=== PATIENT | female | born 1955 | race Caucasian/White ===

== ENCOUNTER 2021-11-03 00:32 | Day surgery (SDC) | payer MEDICARE, SELFPAY ==
[2021-10-19 14:04] VITALS: BMI 30.2
[2021-11-03 08:11] VITALS: BP 125/52; PULSE 76; RESP 16; TEMP 36.2; O2SAT 100
[2021-11-03 08:11] LABS: Glucose Point of Care 296 mg/dl (65-105)
[2021-11-03] MEDS: LACTATED RINGERS 1,000 ML 150 ML IV CONT (08:13)
--- NOTE | 2021-11-03 08:20 | P.PNAN_ITS ---
Anes - Initial Pre Proc Eval Procedure: Operation Date: 11/03/21 09:30 Proposed Procedures p Screening Colonoscopy - Stanley Marie MD Date/Time: 11/03/21 08:20 Surgeon: Stanley Marie MD Pre Op Diagnosis: neoplasm screening Patient Data Age: 65 Gender: F Height: 1.63 m Weight: 79.2 kg Last Vital Signs Temp 36.2 C L 11/03/21 08:11 Pulse 76 11/03/21 08:11 Resp 16 11/03/21 08:11 BP 125/52 L 11/03/21 08:11 Pulse Ox 100 11/03/21 08:11 Allergies Allergy/AdvReac Type Severity Reaction Status Date / Time No Known Allergies Allergy Verified 11/03/21 08:09 Home Medications Medication Instructions Recorded Confirmed Type atorvastatin 40 mg tablet 40 mg PO QHS #90 tablet 09/08/21 11/03/21 Rx glipizide 5 mg tablet, extended 5 mg PO DAILY #90 tablet 10/27/21 11/03/21 Rx release 24 hr levothyroxine 75 mcg tablet 75 mcg PO DAILY #90 tablet 10/27/21 11/03/21 Rx metformin 1,000 mg tablet 1,000 mg PO BID #180 tablet 10/27/21 11/03/21 Rx Laboratory Tests 11/03/21 08:06 POC Capillary Glucose 296 mg/dl H mg/dl (65-105) Patient hx anesthesia problems: none Family hx anesthesia problems: none Results Review: All pre-operative results and documents have been reviewed as part of the pre-operative evaluation. [facility] Past Medical History Medical History Hypothyroid Type 2 diabetes mellitus without complications Surgical History Surgical History History of ankle surgery History of tonsillectomy and adenoidectomy Family History Family History Other Diabetes mellitus Heart disease Social History Social History Smoking status: Never smoker Alcohol intake: current Substance use: never Substance use type: does not use Living arrangements: with family Spiritual care concerns: No Anes - Eval Final PreProcedure Day of Procedure 11/03/21 08:20 Patient weight: obese Heart: regular rate and rhythm Lungs: clear to auscultation Airway: Mallampati scale class II Neurological: alert and oriented Last oral intake: >/= 8 hours ASA classification: III Emergent: no Anesthetic plan: proceed Anesthesia type and monitoring: general GIVS and standard monitoring Results Review: All pre-operative results and documents have been reviewed as part of the pre-operative evaluation. Informed Consent: The patient's anesthetic plan and its attendant risks and benefits were discussed with the patient/family/POA. Questions were solicited and answers provided to the satisfaction of the patient/family/POA.
--- NOTE | 2021-11-03 08:41 | PM.HPGS ---
History of Present Illness History of Present Illness Consent: Risks, benefits, and alternatives have been discussed and questions answered. Patient agrees to proceed with procedure. Chief complaint: neoplasm screening Narrative: Geetha Hernandez is a 65 year old female here for screening colonoscopy, last one over 10 years ago. Review of Systems Constitutional: Constitutional: Denies headache(s) and Denies weakness Eyes: Eyes: Denies blurry vision ENT: Reports Normal hearing present, Denies headache(s) and Denies neck pain Cardiovascular: Cardiovascular: Denies chest pain and Denies dyspnea Respiratory: Respiratory: Denies dyspnea Gastrointestinal: Gastrointestinal: Reports no additional gastrointestinal complaints Genitourinary: Genitourinary: Denies dysuria Musculoskeletal: Musculoskeletal: Denies neck pain Integumentary/Breasts: Skin/Breast: Denies dry skin Neurologic: Reports Normal hearing present, Denies headache(s) and Denies weakness Psychiatric: Psychiatric: Denies anxiety Endocrine: Endocrine: Denies change in body appearance Hematologic/Lymphatic: Hematologic/Lymphatic: Denies easy bleeding Allergic/Immunologic: Allergic/Immunologic: Denies urticaria PMFSH Past Medical History Medical History Hypothyroid Type 2 diabetes mellitus without complications Surgical History Surgical History History of ankle surgery History of tonsillectomy and adenoidectomy Family History Family History Other Diabetes mellitus Heart disease Social History Social History Smoking status: Never smoker Alcohol intake: current Substance use: never Substance use type: does not use Living arrangements: with family Spiritual care concerns: No Meds Home Medications and Allergies Home Medications Medication Instructions Recorded Confirmed Type atorvastatin 40 mg tablet 40 mg PO QHS #90 tablet 09/08/21 11/03/21 Rx glipizide 5 mg tablet, extended 5 mg PO DAILY #90 tablet 10/27/21 11/03/21 Rx release 24 hr levothyroxine 75 mcg tablet 75 mcg PO DAILY #90 tablet 10/27/21 11/03/21 Rx metformin 1,000 mg tablet 1,000 mg PO BID #180 tablet 10/27/21 11/03/21 Rx Allergies Allergy/AdvReac Type Severity Reaction Status Date / Time No Known Allergies Allergy Verified 11/03/21 08:09 Vital Signs Vital Signs - 24 hr 11/03/21 08:11 Temperature 97.1 F L Pulse Rate 76 Respiratory Rate 16 Blood Pressure 125/52 L Pulse Oximetry 100 Exam Const: General: comfortable and no acute distress HENMT: General nose exam: Normal nares present Eyes: General: appearance normal, both eyes and all related structures Neck: Neck: no JVD Resp: Auscultation: clear to auscultation bilaterally Cardio: Rate: regular rate Rhythm: regular rhythm GI: Inspection: non-distended GI Palp: Yes Soft to palpation Skin: General skin exam: normal color Neuro: General: gait normal Speech: normal speech Extrem: General: normal to inspection Psych: Mental Status: mental status grossly normal Assessment and Plan Assessment and plan (1) Screening for malignant neoplasm of colon: Code(s): Z12.11 - Encounter for screening for malignant neoplasm of colon Status: Acute Assessment and Plan: colonoscopy
[2021-11-03 09:00] VITALS: BP 84/47; PULSE 67; RESP 19; O2SAT 93
[2021-11-03 09:10] VITALS: BP 97/48; PULSE 72; RESP 25; O2SAT 100
[2021-11-03 09:20] VITALS: BP 107/50; PULSE 52; RESP 15; O2SAT 100
== END 2021-11-03 09:40 | disposition home or self-care (01) ==
PROVIDERS: PCP Family Medicine; Visit Provider Internal Medicine Gastroenterology
PROC: 0DJD8ZZ Inspection of Lower Intestinal Tract, Via Natural or Artificial Opening Endoscopic (ICD-10-PCS; CPT 45378; principal; 2021-11-03 09:30)
DX: Z12.11 Encounter for screening for malignant neoplasm of colon (principal); K64.8 Other hemorrhoids; E11.9 Type 2 diabetes mellitus without complications; E03.9 Hypothyroidism, unspecified; Z79.84 Long term (current) use of oral hypoglycemic drugs; E66.9 Obesity, unspecified; Z68.30 Body mass index [BMI] 30.0-30.9, adult
CPT/HCPCS: G0121; 82948; J2704; J7120

== ENCOUNTER 2022-05-06 13:24 | Outpatient (CLI) | payer MEDICARE, SELFPAY | END 2022-05-06 13:25 | disposition home or self-care (01) | LOC: ANHAUDIO 13:27 | PROVIDERS: PCP Family Medicine; Visit Provider Otolaryngology | DX: H93.8X2 Other specified disorders of left ear (principal) | CPT/HCPCS: 92557; 92567 ==

== ENCOUNTER 2022-06-22 09:46 | Emergency (ER) | payer MEDICARE, SELFPAY ==
--- NOTE | ~2022-06-22 | XR_ITS ---
XR knee RT 3V DATE: 06/22/2022 11:25 INDICATION: Anterior medial knee pain after being struck by large dog TECHNIQUE: [place], AP and lateral views COMPARISON: None FINDINGS: There is a prominent inferiorly directed beak-like deformity of the medial metaphyseal area of the distal femur, chronic. Moderate narrowing of the medial compartment joint space with mild periarticular spurring at the medi al and patellofemoral compartments and to a slight extent the lateral compartment. Mild suprapatellar knee joint effusion. No fracture or dislocation, periosteal reaction or bone destruction is detected. No radiopaque intra- articular loose body or chondrocalcinosis. IMPRESSION: Tricompartment osteoarthritis Small knee joint effusion is suspected Chronic beak-like deformity at medial metaphyseal area of distal femur Reviewed, dictated and finalized at location B.
[2022-06-22 10:39] VITALS: BP 131/71; PULSE 76; RESP 18; TEMP 37.4; O2SAT 97
--- NOTE | 2022-06-22 11:21 | ED.FALL ---
HPI - Fall General Chief Complaint: Fall Stated Complaint: Fall- RT knee, HI Time Seen by Provider: 06/22/22 10:58 History of Present Illness HPI Narrative: 66-year-old female presents the emergency room complaints of right knee pain. Patient states yesterday dog was running around the neighborhood and ran into her from the backside. This caused patient to fall forward twisting her knee and landing on her backside. Patient is complaining of right knee pain that is worse with ambulation. States that she is experiencing some swelling to the inside of her knee. Denies any clicking or locking up. States she feels that occasionally her knee is unstable when she is walking Related Data Allergies Allergy/AdvReac Type Severity Reaction Status Date / Time No Known Allergies Allergy Verified 06/22/22 11:17 Review of Systems Review of Systems: CONSTITUTIONAL: Denies fever, chills, or sweats. EYES: Denies visual changes, redness, or discharge. ENT: Denies rhinorrhea, congestion, sore throat, or otalgia. CARDIOVASCULAR: Denies chest pain, palpitations, or edema. RESPIRATORY: Denies cough or dyspnea. GASTROINTESTINAL: Denies abdominal pain, nausea, vomiting, or diarrhea. GENITOURINARY: Denies dysuria or hematuria. SKIN: Denies rash or itching. MUSCULOSKELETAL: Reports right knee pain NEUROLOGIC: Denies headache, numbness, dizziness, or weakness. PSYCHIATRIC: Denies anxiety or depression. [facility] Past Medical History Medical History Hypothyroid Type 2 diabetes mellitus without complications Surgical History Surgical History History of ankle surgery History of tonsillectomy and adenoidectomy Family History Family History Father Acute myocardial infarction Mother Sibling Acute myocardial infarction Other Diabetes mellitus Heart disease Social History Social History Smoking status: Never smoker Tobacco type: cigarettes Second hand tobacco smoke exposure: Yes Alcohol intake: current Drinks per week: 0 Alcohol use details: rare Substance use: never Substance use type: does not use Additional occupation/education comments: teacher Spiritual care concerns: No Exam Narrative: GENERAL: Well-appearing, well-nourished, no physical limitations, and in no acute distress. HEAD: Normocephalic, atraumatic. EYES: Conjunctivae normal, PERRLA and EOMI. CHEST: Clear to auscultation. No respiratory distress. No wheezes rales or rhonchi. No tenderness. HEART: Regular rate and rhythm. No murmur heard. Normal peripheral pulses. BACK: No cervical/thoracic/lumbar tenderness, step-offs, bony abnormality; FROM EXTREMITIES: Right knee: No patellar tracking. Tenderness to the medial side of the patella. Negative anterior posterior drawer signs. Discomfort with valgus pressure. No joint laxity otherwise noted. Negative Jomar's test. Neurovascular is distally intact. No obvious bony abnormalities. SKIN: Warm, dry, no rash. No noted wounds NEURO: No focal deficits. Alert and oriented x3. MAEW. CN's II-XI intact bilaterally, antalgic gait PSYCH: Cooperative. Normal mood and affect. Course Vital Signs Vital signs: Vital Signs Temperature 37.4 C 06/22/22 10:39 Pulse Rate 76 06/22/22 10:39 Respiratory Rate 18 06/22/22 10:39 Blood Pressure 131/71 06/22/22 10:39 Pulse Oximetry 97 06/22/22 10:39 Oxygen Delivery Room Air 06/22/22 10:39 Temperature 37.4 C 06/22/22 10:39 Pulse Rate 76 06/22/22 10:39 Respiratory Rate 18 06/22/22 10:39 Blood Pressure 131/71 06/22/22 10:39 Pulse Oximetry 97 06/22/22 10:39 Oxygen Delivery Room Air 06/22/22 10:39 MDM - Fall Imaging Data Radiologist's impression: Impressions Knee X-Ray 05/26
[2022-06-22 12:25] VITALS: BP 124/58; PULSE 64; RESP 18; O2SAT 96
== END 2022-06-22 12:25 | disposition home or self-care (01) ==
PROVIDERS: Emergency Provider Nurse Practitioner Family; PCP Family Medicine
DX: M23.91 Unspecified internal derangement of right knee (principal); E03.9 Hypothyroidism, unspecified; E11.9 Type 2 diabetes mellitus without complications
CPT/HCPCS: 73562; 99283

== ENCOUNTER → 2023-01-27 12:59 | Outpatient (CLI) | payer MEDICARE, SELFPAY ==
--- NOTE | ~2023-01-27 | XR_ITS ---
XR ankle RT min 3V DATE: 01/27/2023 13:20 INDICATION: Right ankle and foot pain TECHNIQUE: 4 views COMPARISON: None FINDINGS: Mild plantar calcaneal enthesopathy. There is a lag screw through the medial malleolus. There is cerclage wire of the lateral malleolus. N o recent fracture or dislocation. Ankle mortise appears intact. No periosteal reaction or bone destruction. IMPRESSION: Postoperative change of the medial and lateral malleoli No recent fracture or dislocation Plantar calcaneal enthesopathy Reviewed, dictated and finalized at location A.
== END ==
PROVIDERS: PCP Family Medicine; Visit Provider Physician Assistant Medical
DX: M25.571 Pain in right ankle and joints of right foot (principal); M77.31 Calcaneal spur, right foot
CPT/HCPCS: 73610

== ENCOUNTER 2023-08-23 14:10 | Outpatient (CLI) | payer MEDICARE, SELFPAY ==
[2023-08-23 14:25] LABS: Basophils Absolute Auto 0.1 K/mm3 (0.0-0.1); Basophils Percent Auto 0.9 % (0.2-1.2); Eosinophils Absolute Auto 0.1 K/mm3 (0-0.3); Eosinophils Percent Auto 1.9 % (0-4.4); Hematocrit 50.7 % (37.0-47.0); Hemoglobin 16.6 g/dL (12.0-15.0); Immature Granulocyte Absolute 0.01 K/mm3 (0.00-0.031); Immature Granulocyte Percent A 0.1 % (0-0.5); Lymphocytes Absolute Auto 3.28 K/mm3 (0.9-3.2); Lymphocytes Percent Auto 47.2 % (18.3-44.2); Mean Corpuscular HGB Conc 32.7 g/dl (32-36); Mean Corpuscular Hemoglobin 29.6 pg (26-34); Mean Corpuscular Volume 90.4 fl (80-100); Mean Platelet Volume 11.3 fl (7.4-10.4); Monocytes Absolute Auto 0.5 K/mm3 (0.1-0.6); Monocytes Percent Auto 7.6 % (2.6-8.5); Neutrophils Absolute Auto 2.9 K/mm3 (1.3-6.7); Neutrophils Percent Auto 42.3 % (45.5-73.1); Platelet Count Result 242 k/mm3 (150-375); Red Blood Count 5.61 M/mm3 (4.2-5.4); Red Cell Distribution Width 13.2 % (11.5-14.5)
[2023-08-23 16:38] LABS: Alanine Aminotransferase 26 U/L (6-35); Albumin Level 4.6 g/dL (3.5-5.1); Alkaline Phosphatase 69 U/L (38-126); Anion Gap 10 mmol/L (8-16); Aspartate Amino Transferase 25 U/L (14-36); Bilirubin,Total 0.5 mg/dL (0.2-1.3); Blood Urea Nitrogen 16 mg/dL (7-17); Calcium 10.3 mg/dL (8.4-10.2); Carbon Dioxide 28 mmol/L (22-30); Chloride 101 mmol/L (98-107); Estimated Glomerular Filt Rate > 60; Glucose 136 mg/dL (65-110); Potassium 4.2 mmol/L (3.4-5.0); Sodium 139 mmol/L (137-145)
[2023-08-26 12:39] LABS: Erythropoietin (EPO) 9.8 mIU/mL (2.6-18.5)
[2023-08-30 12:58] LABS: Block/Specimen ID Not Given; CALR Exon 9 Mutation Not Detected (Not Detected); CSF3R Exon 14/17 Mutation Not Detected (Not Detected); JAK2 Exon 12 Mutation Not Detected (Not Detected); JAK2 V617F Mutation Not Detected (Not Detected); MPL Exon 10 Mutation Not Detected (Not Detected); Specimen Source Blood
== END 2023-08-23 14:11 | disposition home or self-care (01) ==
LOC: ANHLAB 14:13
PROVIDERS: Nurse Practitioner Family; PCP Family Medicine; Visit Provider Internal Medicine Hematology & Oncology
DX: D75.1 Secondary polycythemia (principal)
CPT/HCPCS: 36415; 80053; 81219; 81270; 81279; 81339; 81479; 82668; 85025

== ENCOUNTER 2023-09-09 05:58 | Day surgery (SDC) | payer MEDICARE, SELFPAY ==
[2023-09-02 12:10] VITALS: BMI 27.2
--- NOTE | ~2023-09-09 | XR_ITS ---
EXAMINATION: XR surgery orthopedic DATE: 09/09/2023 11:00 INDICATION: Right ankle instrumentation removal TECHNIQUE: Single fluoroscopic image of the right ankle were obtained during procedure performed by Heydi Dumont. Radiologist was not present for the imaging or procedure. The amount of fluoroscopy time used during this procedure was 0.1 minutes. COMPARISON: 01/27/2023 FINDINGS: Interval removal of the medial malleolar lag screw. A portion of the cerclage wire at the lateral mal leolus has been removed with residual small retained wire fragment projecting across the bone. No fra ctures identified. IMPRESSION: 1. Removal of fixation screw and cerclage wire at the medial and lateral malleoli respectively with r esidual small retained fragment of the cerclage wire. Reviewed, dictated and finalized at location A. OR MICROSOFT CONSULTANT IMPRESSION: 1. Removal of fixation screw and cerclage wire at the medial and lateral malleo li respectively with residual small retained fragment of the cerclage wire.
--- NOTE | 2023-09-09 07:06 | WPDHPUPDATE1 ---
History and Physical Update Update Date/Time: 09/09/23 07:06 History and Physical has been reviewed, including an updated exam of the patient. There are NO changes in the patient's condition. Risks, benefits, and alternatives have been discussed and questions answered. Patient agrees to proceed with procedure.
[2023-09-09 08:16] VITALS: BP 120/63; PULSE 52; RESP 16; TEMP 36.9; O2SAT 100
[2023-09-09 08:30] LABS: Glucose Point of Care 161 mg/dl (65-105)
[2023-09-09] MEDS: LACTATED RINGERS 1,000 ML 30 ML IV CONT (08:35)
--- NOTE | 2023-09-09 09:38 | WPDANESEPPF ---
Anes - Initial Pre Proc Eval Procedure: Operation Date: 09/09/23 09:30 Proposed Procedures p Removal Deep Orthopedic Hardware Right Ankle - Roly Dumont JR, MD Date/Time: 09/09/23 09:38 Surgeon: Roly Dumont JR, MD Pre Op Diagnosis: Painful Hardware Right Ankle Patient Data Age: 67 Gender: F Height: 1.57 m Weight: 69.2 kg Last Vital Signs Temp 36.9 C 09/09/23 08:16 Pulse 52 L 09/09/23 08:16 Resp 16 09/09/23 08:16 BP 120/63 09/09/23 08:16 Pulse Ox 100 09/09/23 08:16 O2 Del Method Room Air 09/09/23 08:16 Allergies Allergy/AdvReac Type Severity Reaction Status Date / Time morphine AdvReac Nausea and Verified 09/09/23 08:52 Vomiting Home Medications Medication Instructions Recorded Confirmed Type dapagliflozin propanediol 5 mg 5 mg PO DAILY #90 tabs 05/18/23 09/02/23 Rx tablet (Farxiga) levothyroxine 75 mcg tablet 75 mcg PO DAILY #90 tabs 06/28/23 09/02/23 Rx glipizide 5 mg tablet, extended 5 mg PO DAILY #90 tabs 07/10/23 09/02/23 Rx release 24 hr cyanocobalamin (vitamin B-12) 1,000 mcg PO .every other day 07/11/23 09/02/23 History 1,000 mcg tablet atorvastatin 40 mg tablet 40 mg PO QHS #90 tabs 08/25/23 09/02/23 Rx metformin 1,000 mg tablet 1,000 mg PO BID #180 tabs 08/25/23 09/02/23 Rx blood sugar diagnostic (FreeStyle #100 ea 08/30/23 Rx Lite Strips) Laboratory Tests 09/09/23 08:22 POC Capillary Glucose 161 H mg/dl (65-105) Patient hx anesthesia problems: none Family hx anesthesia problems: none Results Review: All pre-operative results and documents have been reviewed as part of the pre-operative evaluation. [facility] Past Medical History Medical History BMI 27.0-27.9,adult Hypothyroid Type 2 diabetes mellitus without complications Surgical History Surgical History History of ankle surgery History of tonsillectomy and adenoidectomy Family History Family History Father Acute myocardial infarction Diabetes mellitus Mother Heart disease Sibling Acute myocardial infarction Social History Social History Smoking status: Never smoker Second hand tobacco smoke exposure: No Alcohol intake: current Drinks per week: 0 Alcohol use details: rare Substance use: never Substance use type: does not use Lack of Transportation: No Lack of Food: Never True Current Housing: I Have Housing Concerned About Future Housing: No Difficulty Paying Gas/Electric Bills: No Difficulty Paying for Meds: No Currently Unemployed: No Education: Bachelor's Degree Difficulty w/ Childcare or Family Care: No Living arrangements: with family Occupation/Education: retired Additional occupation/education comments: [employer] Gender identity (if verbalized by the patient): Female Spiritual care concerns: No Anes - Eval Final PreProcedure Day of Procedure 09/09/23 09:38 Patient weight: overweight Heart: regular rate and rhythm Lungs: clear to auscultation Airway: Mallampati scale class II Neurological: alert and oriented Last oral intake: >/= 8 hours ASA classification: III Emergent: no Anesthetic plan: proceed Anesthesia type and monitoring: general GIVS and standard monitoring Results Review: All pre-operative results and documents have been reviewed as part of the pre-operative evaluation. Informed Consent: The patient's anesthetic plan and its attendant risks and benefits were discussed with the patient/family/POA. Questions were solicited and answers provided to the satisfaction of the patient/family/POA.
[2023-09-09] MEDS: ceFAZolin SODIUM 2 GM/20 ML SW SYRINGE IV PUSH (09:47)
[2023-09-09] MEDS: BUPivacaine HCL 0.5% 10 ML AMP INFILTRATE (09:55)
[2023-09-09] MEDS: LIDOCAINE HCL 2% PF INJ 5 ML VIAL 10 ML INFILTRATE (09:55)
[2023-09-09 10:46] VITALS: BP 108/62; PULSE 48; RESP 18; O2SAT 100
[2023-09-09 10:56] VITALS: BP 118/58; PULSE 51; RESP 18; O2SAT 96
--- NOTE | 2023-09-09 10:57 | W.PM.PROC2 ---
Procedure Note - Detailed Date of Procedure 09/09/23 Pre-op Diagnosis Painful Hardware Right Ankle Post-op Diagnosis Same Procedure Performed Removal of deep orthopedic hardware right ankle Surgeon Roly Dumont JR, DPM Anesthesia MAC and Local Indications Prominent hardware right ankle Description of Procedure Under mild sedation, the patient was brought in to the operating room, placed on the operating table in the supine position. A pneumatic calf tourniquet was placed about the patient's leg. Following monitored anesthesia care, local anesthesia was obtained about the patients ankle utilizing 20 mL of a 1:1 mixture of 2% Lidocaine plain and 0.5% Marcaine plain. The foot was then scrubbed, prepped, and draped in the usual aseptic manner. An Esmarch bandage was then used to exsanguinate the patient's foot and the pneumatic calf tourniquet was then inflated. An incision was made along the medial aspect of the distal tibial just proximal to the tip of the medial malleolus. Fluoroscopy was used to identify the screw head. Dissection was continued to the subcutaneous tissues all bleeders were cauterized as necessary. A periosteal incision was made and the screw head was visualized. It was noted to be a hexagonal 3.5mm head screw, it was removed in toto and placed on the back table. Fluoroscopy was used to confirm complete screw removal. The wound site was flushed with sterile saline. Next, the skin was reapproximated and coapted utilizing 4-0 Prolene in a Horizontal mattress suture fashion technique. The same procedure was duplicated for the lateral malleoli where cerclage wire was prominent and cut flush with the bone. It was also removed from the operative site and discarded. Upon completion of the procedure, the incision was dressed with Adaptic, 4x4s, Kerlix, and Coban. The pneumatic calf tourniquet was then deflated and a prompt hyperemic response was noted to all digits of the foot. The CAM Walker boot was then applied. The patient did very well with the procedure and the anesthesia. The patient was transferred to the recovery room with vital signs stable and vascular status intact to all toes of the foot. Following a period of postoperative monitoring, the patient will be discharged home on the following written and oral postoperative instructions: 1. The patient should keep the dressing clean, dry, and intact. Use a cast protector bag with showers. 2. The patient will be protected weightbearing with CAM boot. 3. Patient should ice and elevate the affected lower extremity while at rest. 4. The patient is to contact Dr. Dumont for all postop care and if any problems arise. 5. Prescriptions were written for Percocet 5/325 dispensed 40 to be taken 1 p.o. q.4-6 hours as needed for severe pain. Estimated Blood Loss -2.0 Drains No Packing No Pathology None sent Complications No immediate complications Condition Stable Disposition Same day
[2023-09-09 11:06] VITALS: BP 118/58; PULSE 48; RESP 17; O2SAT 100
[2023-09-09 11:16] VITALS: BP 124/59; PULSE 47; RESP 16; O2SAT 100
[2023-09-09 11:26] VITALS: BP 124/61; PULSE 50; RESP 16; O2SAT 98
--- NOTE | 2023-09-09 11:40 | WPDANESPN ---
Anes - Prog Note Post-Op Date/Time: 09/09/23 11:40 Cardiovascular status: normal Respiratory status: normal Airway patency: baseline Mental status: baseline Post-Op hydration status: normal Vital Signs: Last Vital Signs Temp 36.9 C 09/09/23 08:16 Pulse 50 L 09/09/23 11:26 Resp 16 09/09/23 11:26 BP 124/61 09/09/23 11:26 Pulse Ox 98 09/09/23 11:26 O2 Del Method Room Air 09/09/23 11:26 Pain Score (VAS): 0 I/O: Intake & Output 09/08/23 09/09/23 09/09/23 23:59 07:59 15:59 Intake Total 500 Balance 500 09/09/23 08:22 POC Capillary Glucose 161 H Patient Feedback: Patient satisfied with anesthetic care.
== END 2023-09-09 11:50 | disposition home or self-care (01) ==
PROVIDERS: PCP Family Medicine; Visit Provider Podiatrist Foot & Ankle Surgery
PROC: (CPT 20680; principal; 2023-09-09 09:30)
DX: T84.418A Breakdown (mechanical) of other internal orthopedic devices, implants and grafts, initial encounter (principal)
CPT/HCPCS: 20680; 99199

== ENCOUNTER 2023-09-14 09:42 | Emergency (ER) | payer MEDICARE, SELFPAY ==
--- NOTE | ~2023-09-14 | CT_ITS ---
EXAMINATION: CT lumbar spine wo con DATE: 09/14/2023 10:58 INDICATION: Lower back pain TECHNIQUE: Computed tomography (CT) of the lumbar spine was performed without intravenous contrast. T he dose-length product was 591.01 mGy-cm. Automated exposure control and iterative reconstruction blas hnique were employed. COMPARISON: None FINDINGS: There is disc narrowing at L4-5 and L5-S1. There is grade 1 spondylolisthesis at L4-5 and L 5-S1 secondary to facet hypertrophy. There is mild annular disc bulging at L4-5 causing bilateral jesus ral foraminal and central canal stenosis. No acute fracture or traumatic malalignment. No significant paraspinal soft tissue abnormality. Mild levoscoliosis of the lumbar spine centered at L3. IMPRESSION: 1. Moderate-severe lumbar spondylosis with central canal and bilateral neural foraminal stenosis at L 4-5. Reviewed, dictated and finalized at location B. OR FIRE PROTECTION ENGINEER IMPRESSION: 1. Moderate-severe lumbar spondylosis with central canal and bilateral neural f oraminal stenosis at L4-5.
[2023-09-14 10:09] VITALS: BP 130/48; PULSE 73; RESP 16; TEMP 36.3; O2SAT 97
[2023-09-14] MEDS: ACETAMINOPHEN 500 MG TABLET 1000 MG PO (11:00)
[2023-09-14] MEDS: KETOROLAC (*BKC) 60 MG/2 ML VIAL IM (11:01)
[2023-09-14] MEDS: CYCLOBENZAPRINE HCL 5 MG TABLET PO (11:01)
--- NOTE | 2023-09-14 11:06 | ED.BACK ---
HPI - Back Pain/Injury General Chief Complaint: Back Pain/Injury Stated Complaint: lower back pain Time Seen by Provider: 09/14/23 10:11 Source: patient Mode of arrival: ambulatory Limitations: no limitations History of Present Illness HPI Narrative: patient is a 67-year-old female who presents to the ED with report of right lower back pain. Patient underwent right ankle surgery and hardware removal with Dr. Dumont last . She has been in a walking boot since then. She developed pain in her right lower back on Tuesday, which he feels is from walking differently in the walking boot. Pain does not significantly radiate down her leg. Denies radiation to abdomen. Pain worse with bending, twisting, sitting up or down. Denies saddle anesthesia, bowel or bladder incontinence, weakness, numbness. Patient has been taking Tylenol and oxycodone at home without significant improvement. Related Data Home Medications Medication Instructions Recorded Confirmed cyanocobalamin (vitamin B-12) 1,000 mcg PO .every other day 07/11/23 09/02/23 1,000 mcg tablet Allergies Allergy/AdvReac Type Severity Reaction Status Date / Time morphine AdvReac Nausea and Verified 09/09/23 08:52 Vomiting Review of Systems Review of Systems: CONSTITUTIONAL: Denies fever, chills, or sweats. GASTROINTESTINAL: Denies abdominal pain, nausea, vomiting, incontinence, or diarrhea. GENITOURINARY: Denies incontinence, dysuria or hematuria. MUSCULOSKELETAL: See HPI. NEUROLOGIC: Denies headache, numbness, or weakness. All systems reviewed & are unremarkable except as noted in HPI and below PMFSH Past Medical History Medical History BMI 27.0-27.9,adult Hypothyroid Type 2 diabetes mellitus without complications Surgical History Surgical History History of ankle surgery History of tonsillectomy and adenoidectomy Family History Family History Father Acute myocardial infarction Diabetes mellitus Mother Heart disease Sibling Acute myocardial infarction Social History Social History Smoking status: Never smoker Second hand tobacco smoke exposure: No Alcohol intake: current Drinks per week: 0 Alcohol use details: rare Substance use: never Substance use type: does not use Lack of Transportation: No Lack of Food: Never True Current Housing: I Have Housing Concerned About Future Housing: No Difficulty Paying Gas/Electric Bills: No Difficulty Paying for Meds: No Currently Unemployed: No Education: Bachelor's Degree Difficulty w/ Childcare or Family Care: No Living arrangements: with family Occupation/Education: 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 HEAD: Normocephalic, atraumatic. NECK: Supple. No adenopathy, no masses. RESPIRATORY: Airway patent, respirations nonlabored. CARDIOVASCULAR: Regular rate and rhythm without murmurs, rubs, or gallops. Radial pulses 2+ and equal bilaterally. ABDOMINAL: Soft, no pain throughout abdomen, nondistended, no hepatosplenomegaly. Normoactive BS. MUSCULOSKELETAL: Moves all extremities. Strength/ROM intact without gross deformities. TTP in R lumbosacral region. No midline spinal tenderness. R foot/ankle in walking boot. Betadine skin changes. Sensation intact. Distal capillary refill intact. Able to wiggle toes. SKIN: Warm, dry, normal color. No rashes. NEURO: A&O X3. Speech clear. Cranial nerves II-XII grossly intact. No ataxic movements. PSYCHIATRIC: Appropriate mood and affect. Normal
[2023-09-14 12:36] VITALS: BP 107/68; PULSE 68; RESP 16; O2SAT 98
== END 2023-09-14 12:38 | disposition home or self-care (01) ==
PROVIDERS: Emergency Provider Physician Assistant; PCP Family Medicine
DX: S39.012A Strain of muscle, fascia and tendon of lower back, initial encounter (principal); Z98.890 Other specified postprocedural states; E03.9 Hypothyroidism, unspecified; E11.9 Type 2 diabetes mellitus without complications; M47.816 Spondylosis without myelopathy or radiculopathy, lumbar region; Z79.84 Long term (current) use of oral hypoglycemic drugs; X58.XXXA Exposure to other specified factors, initial encounter
CPT/HCPCS: 72131; 96372; 99284; A9270; J1885

== ENCOUNTER 2023-12-15 12:44 | Outpatient (CLI) | payer MEDICARE, SELFPAY ==
[2023-12-15 13:39] LABS: Appearance Urine Clear (Clear); Bacteria Urine 4+ /hpf; Bilirubin Urine Negative (Negative); Blood Urine 2+ (Negative); Color Urine Yellow (Yellow); Glucose Urine UA 3+ mg/dL (Negative); Ketones Urine Negative (Negative); Leukocyte Esterase Ur 1+ LEU/UL (NEGATIVE); Nitrate Urine Positive (Negative); Non Pathogenic Casts 0-2; Protein Urine Negative (Negative); RBC Urine 21-50 /hpf (0-2); Specific Grav Ur 1.022 (1.001-1.035); Squamous Epithelial Cell Urine None seen /hpf (Few); Urobilinogen Urine 0.2 mg/dL (<2.0)
[2023-12-15 13:47] LABS: Add Urine Microscopic? YES
== END 2023-12-15 12:45 | disposition home or self-care (01) ==
PROVIDERS: PCP Family Medicine; Visit Provider Nurse Practitioner Adult Health
DX: R31.29 Other microscopic hematuria (principal)
CPT/HCPCS: 81001

== ENCOUNTER 2023-12-29 11:40 | Outpatient (CLI) | payer MEDICARE, SELFPAY ==
--- NOTE | ~2023-12-29 | XR_ITS ---
Supine and upright views of the abdomen Clinical history: Microscopic hematuria Findings: Bowel gas pattern is nonspecific. No evidence for obstruction or free air. No abnormal mass lesion or calcification is seen. Osseous structures are intact. Impression: No significant abnormality is seen. Reviewed, dictated and finalized at [facility]. TER SAXOPHONES Impression: No significant abnormality is seen.
== END 2023-12-29 11:41 | disposition home or self-care (01) ==
PROVIDERS: PCP Family Medicine; Visit Provider Nurse Practitioner Adult Health
DX: R31.29 Other microscopic hematuria (principal)
CPT/HCPCS: 74018

== ENCOUNTER 2024-01-02 07:30 | Outpatient (CLI) | payer MEDICARE, SELFPAY ==
--- NOTE | ~2024-01-02 | CT_ITS ---
EXAMINATION: CT abdomen pelvis wo/w con DATE: 01/02/2024 08:13 INDICATION: Microscopic hematuria. TECHNIQUE: Computed tomography (CT) of the abdomen and pelvis was performed without intravenous contr ast. CT of the abdomen and pelvis was then performed with a total of 130 mL Omnipaque-350 intravenous contrast using a double-bolus technique for simultaneous opacification of the renal parenchyma and r enal collecting system. The dose-length product was 1252.73 mGy-cm. COMPARISON: None FINDINGS: Lung bases are clear. Heart size is normal. No pericardial or pleural effusion. There are few gallsto jurgen in the dependent fundus of the normal gallbladder. Liver, spleen, pancreas, bilateral adrenal gla nds and kidneys are normal. No urolithiasis or hydronephrosis. No urothelial irregularities along the contrast opacified portions of the bilateral renal collecting systems and ureters. The bowels includ ing the appendix are normal. Bladder, uterus and bilateral adnexa are unremarkable. No free intraperi toneal gas or fluid. No pathologically enlarged abdominal or pelvic lymphadenopathy. For millimeter a nterolisthesis L4 on L5. Mild lumbar and mild to moderate lower thoracic spondylosis. IMPRESSION: 1. No urolithiasis or acute intra-abdominal/pelvic process. 2. Cholelithiasis. Reviewed, dictated and finalized at location B.
[2024-01-02 07:49] LABS: Estimated Glomerular Filt Rate > 60
== END 2024-01-02 07:31 | disposition home or self-care (01) ==
PROVIDERS: PCP Family Medicine; Visit Provider Nurse Practitioner Adult Health
DX: R31.29 Other microscopic hematuria (principal); K80.20 Calculus of gallbladder without cholecystitis without obstruction
CPT/HCPCS: 74178; Q9967

== ENCOUNTER 2024-10-05 14:37 | Outpatient (CLI) | payer MEDICARE, SELFPAY ==
--- NOTE | 2024-10-05 14:53 | ECHO_ITS ---
Patient Info Name: Geetha Hernandez Age: 68 years : 1955 Gender: Female Ht: 63 in Wt: 154 lbs BSA: 1.78 m2 HR: 79 bpm BP: 110 / 66 mmHg Technical Quality: Good Exam Date: 10/05/2024 3:07 PM Exam Location: Echo Lab Patient Status: Outpatient Admit Date: 10/05/2024 Staff Ordering Physician: Natasha Vega PAC Chief Deputy Court Clerk: Elizabeth Navarrete RDCS Attending Provider: Natasha Vega PAC Referring Physician: Gary EPPS; Exam Type: CA echo doppler color flow Study Info Complete two-dimensional, color flow and Doppler transthoracic echocardiogram is performed. Summary 1. Complete two-dimensional, color flow and Doppler transthoracic echocardiogram is performed. 2. Left ventricular chamber dimension is normal. 3. Left ventricular systolic function is normal, estimated at 55-60%. 4. The left ventricular diastolic function is grade I diastolic dysfunction. 5. E/e' 9 is minimally elevated. 6. Left atrial chamber dimension is mildly enlarged. 7. There is mild mitral valve regurgitation. 8. There is mild tricuspid valve regurgitation. 9. No pulmonary hypertension, estimated pulmonary arterial systolic pressure is 29 mmHg. Left Ventricle E/e' 9 is minimally elevated. Left ventricular chamber dimension is normal. Left ventricular systolic function is normal, estimated at 55-60%. The left ventricular diastolic function is grade I diastolic dysfunction. Right Ventricle Right ventricular systolic function is normal and with normal TAPSE 1.8 cm. Right ventricular chamber dimension is mildly enlarged. Left Atria Left atrial chamber dimension is mildly enlarged. Right Atria Right atrial chamber dimension is normal. Aortic Valve The aortic valve is trileaflet. There is no aortic valve stenosis. There is no aortic valve regurgitation. Pulmonic Valve There is no pulmonic regurgitation. Mitral Valve There is no mitral valve stenosis. There is mild mitral valve regurgitation. Tricuspid Valve There is mild tricuspid valve regurgitation. No pulmonary hypertension, estimated pulmonary arterial systolic pressure is 29 mmHg. Pericardium/Pleural There is no pericardial effusion. Inferior Vena Cava Normal inferior vena cava with >50% collapse upon inspiration consistent with normal right atrial pressure, 5 mmHg. Aorta The aortic root size at the sinus of Valsalva is normal. Left Ventricular Outflow Tract Name Value Normal LVOT 2D LVOT Diameter 2.1 cm LVOT Doppler LVOT Peak Gradient 4 mmHg LVOT Mean Gradient 2 mmHg LVOT VTI 23 cm LVOT VTI/AV VTI Ratio 0.9 LVOT Stroke Volume 78 ml LVOT CO 4.5 l/min LVOT CI 2.5 l/min/m2 Pulmonic Valve Name Value Normal PV Doppler PV Peak Gradient 2 mmHg Mitral Valve Name Value Normal MV Doppler MV Decel Wallace 242 cm/s2 MV PHT 72 ms MV Area (PHT) 3.1 cm2 4.0-5.0 MV Regurgitation Doppler MR Peak Gradient 48 mmHg MV Diastolic Function MV E Peak Velocity 60 cm/s MV A Peak Velocity 80 cm/s MV E/A 0.7 MV Decel Time 247 ms MV Annular TDI MV E/e' (Septal) 10.9 <=8.0 MV E/e' (Lateral) 7.8 <=8.0 MV E/e' (Average) 9.3 Tricuspid Valve Name Value Normal TV Regurgitation Doppler TR Peak Velocity 246 cm/s TR Peak Gradient 24 mmHg Estimated PAP/RSVP RA Pressure 5 mmHg <=5 PA Systolic Pressure 29 mmHg <36 RV Systolic Pressure 29 mmHg <36 Aorta Name Value Normal Ascending Aorta Ao Root Diameter (2D) 3.1 cm Ao Root Diam Index (2D) 1.8 cm/m2 Aortic Valve Name Value Normal AV Doppler AV Peak Velocity 124 cm/s AV Peak Gradient 6 mmHg AV Mean Gradient 3 mmHg AV VTI 25 cm AV Area (Cont Eq VTI) 3.1 cm2 >=3.0 AV Area (Cont Eq Antonio) 2.7 cm2 AV Regurgitation 2D LVOT Area 3.4 cm2 Ventricles Name Value Normal LV Dimensions 2D/MM LVOT Diameter 2.1 cm LV Fractional Shortening/Ejection Fraction 2D/MM LV Diastolic Volume (4C MOD) 86 ml LV EF (4C MOD) 57 % LV Diastolic Volume (2C MOD) 80 ml LV EF (2C MOD) 38 % LV Diastolic Volume (BP MOD) 84 ml 46-106 LV Diastolic Volume Index (BP MOD) 47 ml/m2 29-61 LV Systolic Volume (BP MOD) 47 ml 14-42 LV Systolic Volume Index (BP MOD) 26 ml/m2 8-24 LV EF (BP MOD) 44 % 54-74 LV Diastolic Length (4C) 7.4 cm LV Systolic Length (4C) 6.6 cm LV Stroke Volume (4C MOD) 49 ml LV CO (BP MOD) 2.1 l/min LV CI (BP MOD) 1.2 l/min/m2 Atria Name Value Normal LA Dimensions LA Dimension (2D) 5.2 cm 2.7-3.8 LA Dimen Index (2D) 2.9 cm/m2 LA Volume (4C A-L) 38 ml LA Volume (BP A-L) 42 ml RA Dimensions RA Area (4C) 12.7 cm2 <=18.0 Report Signatures
--- OUTSIDE RECORDS SUMMARY | 2024-10-08 21:54 | XMS_ITS | Clinical Summary ---
Author Organization [facility] [employer] Address [address] [place] [address] Care Team Providers Care Creamery Worker Name Role Phone Ap Ayers MD Primary Care Provider [phone] Allergies Active Allergy Reactions Criticality Noted Date Comments Morphine Nausea and Vomiting Low 04/11/2024 Medications Medication Sig Dispensed Refills Start Date End Date Status atorvastatin (LIPITOR) 40 mg tablet TAKE 1 TABLET BY MOUTH EVERY DAY AT BEDTIME 02/22/2022 Active glipiZIDE (GLUCOTROL XL) 5 mg Extended Release 24 hour tablet Take 5 mg by mouth daily. 02/22/2022 Active levothyroxine 75 mcg tablet Take 88 mcg by mouth daily. 12/20/2021 Active metFORMIN (GLUCOPHAGE) 1,000 mg tablet Take 1,000 mg by mouth 2 times daily. 02/22/2022 Active aspirin (ECOTRIN EC) 81 mg Tablet, Delayed Release (E.C.) Take 81 mg by mouth daily. Active cyanocobalamin 1,000 mcg Tablet Take 1,000 mcg by mouth every Tuesday, Tuesday, and Tuesday. Active empagliflozin (Jardiance) 10 mg tablet Take 25 mg by mouth daily in the morning. Active Active Problems No known active problems Encounters Date Type Department Care Team Description 08/13/2024 1:00 PM CDT Office Visit [facility] Oncology and Hematology - Norm [address] [place] [address] Champ Montero MD Erythrocytosis (Primary Dx) 08/06/2024 Orders Only Initial Department [address] CHANG: [place] [address] Provider, Historical 07/24/2024 External Device Data STL ABSTRACTION Provider, Abstract 07/10/2024 External Device Data STL ABSTRACTION Provider, Abstract from Last 3 Months Family History Medical History Relation Name Comments Heart Disease Father Relation Name Status Comments Brother 1 Alive Brother 2 Alive Daughter 1 Alive Daughter 2 Alive Father Mother Sister 1 Alive Sister 2 Alive Son Alive Social History Tobacco Use Types Packs/Day Years Used Date Smoking Tobacco: Never Smokeless Tobacco: Never Tobacco Cessation:Counseling Given: Not Answered Alcohol Use Standard Drinks/Week Comments Not Currently 0 (1 standard drink = 0.6 oz pur e alcohol) Sex and Gender Information Value Date Recorded Sex Assigned at Female 08/02/2024 5:07 PM CDT Gender Identity Female 08/02/2024 5:07 PM CDT Sexual Orientation Not on file Last Filed Vital Signs Vital Sign Reading Time Taken Comments Blood Pressure 126/71 08/13/2024 1:06 PM CDT Pulse 65 08/13/2024 1:06 PM CDT Temperature 36.7 ??C (98 ??F) 08/13/2024 1:06 PM CDT Respiratory Rate 15 08/13/2024 1:06 PM CDT Oxygen Saturation 97% 08/13/2024 1:06 PM CDT Inhaled Oxygen Concentration - - Weight 70.3 kg (155 lb) 08/13/2024 1:06 PM CDT Height 157.5 cm (5' 2 ) 08/23/2023 1:09 PM CDT Body Mass Index 28.35 08/23/2023 1:09 PM CDT Plan of Treatment Upcoming Encounters Date Type Department Care Team (Late st Contact Info) Description 02/11/2025 2:15 PM CDT Office Visit [facility] Oncology and Hematology - Norm [address] [facility] [address] [place] [address] Champ Montero MD [address] [facility] [address] [place] [address] Health Maintenance Due Date Last Done Comments PNEUMOCOCCAL VACCINE 65+ YEA RS (1 of 2 - PCV) 1960 DIABETES ANNUAL FOOT EXAM 1972 DIABETES ANNUAL RETINAL EXAM 1972 DIABETES MICROALBUMIN ANNUAL SCREEN 1972 LDL CHOLESTEROL ANNUAL 1972 DTAP/TDAP/TD VACCINES (1 - Tdap) 1973 COLORECTAL SCREENING 1999 Colorectal Cancer Screening 1999 FIT-DNA Q 3 years 1999 FIT/FOBT Q 1 year 1999 Flex Sig/CT Colonography Q 5 years 1999 ZOSTER VACCINE (1 of 2) 2004 RSV VACCINE (60+ or ) (1 - Risk 60-74 years 1-dose series) 2014 BREAST CANCER SCREENING 01/18/2016 01/17/2015 OSTEOPOROSIS SCREENING 2019 DIABETES HBA1C Q 6 MONTHS 09/25/2022 03/26/2022, 03/2020 INFLUENZA VACCINE (#1) 2024 Procedures Procedure Name Priority Date/Time Associated Diagnosis Comments BASIC METABOLIC PANEL Routine 08/06/2024 7:32 AM CDT CBC WITH DIFFERENTIAL Routine 08/06/2024 7:32 AM CDT from Last 3 Months Results * (ABNORMAL) CBC WITH DIFFERENTIAL (08/06/2024 7:32 AM CDT) WBC 6.0 3.8 - 10.8 Thousand/u L [facility] RBC 5.24(H) 3.80 - 5.10 Million/uL [facility] HEMOGLOBIN 16.4(H) 11.7 - 15.5 g/dL [facility] HEMATOCRIT 48.9(H) 35.0 - 45.0 % [facility] MCV 93.3 80.0 - 100.0 fL [facility] MCH 31.3 27.0 - 33.0 pg [facility] MCHC 33.5 32.0 - 36.0 g/dL [facility] Comment: For adults, a slight decrease in the calculated MCHC value (in the range of 30 to 32 g/dL) is most likely not clinically significant; however, it should be interpreted with caution in correlation with other red cell parameters and the patient's clinical condition. RDW 12.9 11.0 - 15.0 % [facility] PLATELETS 215 140 - 400 Thousand/u L [facility] MPV 11.7 7.5 - 12.5 fL [facility] NEUTROPHIL ABSOLUTE 1,992 1,500 - 7,800 cells/uL [facility] LYMPHOCYTE ABSOLUTE 3,318 850 - 3,900 cells/uL [facility] MONOCYTE ABSOLUTE 450 200 - 950 cells/uL [facility] EOSINOPHIL ABSOLUTE 192 15 - 500 cells/uL [facility] BASOPHILS ABSOLUTE 48 0 - 200 cells/uL [facility] NEUTROPHIL 33.2 % [facility] LYMPHOCYTES 55.3 % [facility] MONOCYTE 7.5 % [facility] EOSINOPHILS 3.2 % [facility] BASOPHILS 0.8 % [facility] Comment: FASTING:YES FASTING: YES Test Performed at: [email or web address] ??[phone] Marnie Sanabria MD 08/06/2024 7:32 AM CDT 08/06/2024 7:35 AM CDT Emily Pacheco ARMY MANAGER HEMATOLOGY ORDERABLE S [facility] [phone] [facility] [address] * (ABNORMAL) BASIC METABOLIC PANEL (08/06/2024 7:32 AM CDT) GLUCOSE 140(H) 65 - 99 mg/dL [facility] Comment: ? Fasting reference interval For someone without known diabetes, a glucose value >125 mg/dL indicates that they may have diabetes and this should be confirmed with a follow-up test. BUN 16 7 - 25 mg/dL [facility] CREATININE 0.75 0.50 - 1.05 mg/dL [facility] GFR 86 > OR = 60 mL/min/1.7 3m2 [facility] BUN/CREAT RATIO SEE NOTE: (calc) [facility] Comment: ?? Not Reported: BUN and Creatinine are within ?? reference range. ? SODIUM 138 135 - 146 mmol/L [facility] POTASSIUM 4.2 3.5 - 5.3 mmol/L [facility] CHLORIDE 103 98 - 110 mmol/L [facility] CO2 25 20 - 32 mmol/L [facility] CALCIUM 9.6 8.6 - 10.4 mg/dL [facility] Comment: FASTING:YES FASTING: YES Test Performed at: [facility] ??[phone] Marnie Sanabria MD 08/06/2024 7:32 AM CDT 08/06/2024 7:35 AM CDT Emily Pacheco ARMY MANAGER CHEMISTRY ORDERABLES [facility] [phone] [facility] [address] from Last 3 Months Care Teams Creamery Worker Relationship Specialty Start Date End Date Ap Ayers MD [address] [place] [id number] PCP - General Family Practice 05/27/23
--- OUTSIDE RECORDS SUMMARY | 2024-10-08 21:54 | XMS_ITS | Encounter Summary ---
Author Organization [facility] Address [address] Zaidin: Epic Prelude ADT [place] [address] Care Team Providers Care Jackaroo Name Role Phone Ap Ayers MD Primary Care Provider [phone] Encounter Details Date Type Department Care Team (Late st Contact Info) Description 04/04/2024 Orders Only Initial Department [address] ZAIDIN: [place] [address] Provider, Historical Social History Tobacco Use Types Packs/Day Years Used Date Smoking Tobacco: Never Smokeless Tobacco: Never Alcohol Use Standard Drinks/Week Comments Not Currently 0 (1 standard drink = 0.6 oz pur e alcohol) Sex and Gender Information Value Date Recorded Sex Assigned at Female 08/02/2024 5:07 PM CDT Gender Identity Female 08/02/2024 5:07 PM CDT Sexual Orientation Not on file documented as of this encounter Plan of Treatment Upcoming Encounters Date Type Department Care Team (Late st Contact Info) Description 02/11/2025 2:15 PM CDT Office Visit [facility] Oncology and Hematology - Norm [address] [facility] [address] [place] [address] Champ Montero MD [address] [facility] [address] [place] [address] documented as of this encounter Procedures Procedure Name Priority Date/Time Associated Diagnosis Comments CBC WITH DIFFERENTIAL Routine 04/04/2024 11:55 AM CDT BASIC METABOLIC PANEL Routine 04/04/2024 11:55 AM CDT documented in this encounter Results * (ABNORMAL) BASIC METABOLIC PANEL (04/04/2024 11:55 AM CDT) GLUCOSE 216(H) 65 - 139 mg/dL [facility] Comment: ? Non-fasting reference interval BUN 20 7 - 25 mg/dL [facility] CREATININE 0.82 0.50 - 1.05 mg/dL [facility] GFR 77 > OR = 60 mL/min/1.7 3m2 [facility] BUN/CREAT RATIO SEE NOTE: 6 - 22 (calc) [facility] Comment: ?? Not Reported: BUN and Creatinine are within ?? reference range. ? SODIUM 136 135 - 146 mmol/L [facility] POTASSIUM 4.6 3.5 - 5.3 mmol/L [facility] CHLORIDE 101 98 - 110 mmol/L [facility] CO2 19(L) 20 - 32 mmol/L [facility] CALCIUM 10.4 8.6 - 10.4 mg/dL [facility] Comment: FASTING:NO FASTING: NO Test Performed at: [facility] [address] [place], [place] ??[phone] Marnie Sanabria MD 04/04/2024 11:5 5 AM CDT 04/04/2024 11:55 AM CDT Emily Pacheco [facility] CHEMISTRY ORDERABLES [facility] [address] [phone] [facility] [address] [place] [address] * (ABNORMAL) CBC WITH DIFFERENTIAL (04/04/2024 11:55 AM CDT) WBC 6.1 3.8 - 10.8 Thousand/u L [facility] RBC 5.42(H) 3.80 - 5.10 Million/uL [facility] HEMOGLOBIN 16.0(H) 11.7 - 15.5 g/dL [facility] HEMATOCRIT 48.7(H) 35.0 - 45.0 % [facility] MCV 89.9 80.0 - 100.0 fL [facility] MCH 29.5 27.0 - 33.0 pg [facility] MCHC 32.9 32.0 - 36.0 g/dL [facility] RDW 13.1 11.0 - 15.0 % [facility] PLATELETS 228 140 - 400 Thousand/u L [facility] MPV 11.4 7.5 - 12.5 fL [facility] NEUTROPHIL ABSOLUTE 2,690 1,500 - 7,800 cells/uL [facility] LYMPHOCYTE ABSOLUTE 2,812 850 - 3,900 cells/uL [facility] MONOCYTE ABSOLUTE 360 200 - 950 cells/uL [facility] EOSINOPHIL ABSOLUTE 159 15 - 500 cells/uL [facility] BASOPHILS ABSOLUTE 79 0 - 200 cells/uL [facility] NEUTROPHIL 44.1 % [facility] LYMPHOCYTES 46.1 % [facility] MONOCYTE 5.9 % [facility] EOSINOPHILS 2.6 % [facility] BASOPHILS 1.3 % [facility] Comment: FASTING:NO FASTING: NO Test Performed at: [facility] [employer] ??[phone] Marnie Sanabria MD 04/04/2024 11:5 5 AM CDT 04/04/2024 11:55 AM CDT Emily Pacheco OIL PIPE INSPECTOR HELPER HEMATOLOGY ORDERABLE S [facility] [address] [phone] [facility] [address] documented in this encounter Visit Diagnoses Not on filedocumented in this encounter Care Teams Jackaroo Relationship Specialty Start Date End Date Ap Ayers MD [address] [place] [address] PCP - General Family Practice 05/27/23 documented as of this encounter
--- OUTSIDE RECORDS SUMMARY | 2024-10-08 21:54 | XMS_ITS | Encounter Summary ---
Author Organization [facility] Address [address] [place] [address] Care Team Providers Care Toy Department Manager Name Role Phone Ap Ayers MD Primary Care Provider [phone] Encounter Details Date Type Department Care Team (Late st Contact Info) Description 07/24/2024 External Device Data ST[place] ABSTRACTION Provider, Abstract NO ADDRESS ON FILE Social History Tobacco Use Types Packs/Day Years [...] Description 02/11/2025 2:15 PM CDT Office Visit [facility] Oncology and Hematology - [place] [address] [place] [address] [address] [place] [address] Champ Montero MD [address] [facility] [address] [place] [address] documented as of this encounter Visit Diagnoses Not on filedocumented in this encounter Care Teams Toy Department Manager Relationship Specialty Start Date End Date Ap Ayers MD [address] [place] [address] PCP - General Family Practice 05/27/23 documented as of this encounter
--- OUTSIDE RECORDS SUMMARY | 2024-10-08 21:54 | XMS_ITS | Encounter Summary ---
Author Organization [facility] Address [address] [place] [address] Care Team Providers Care Sketcher Name Role Phone Ap Ayers MD Primary Care Provider [phone] Reason for Visit * Reason Comments Follow Up Encounter Details Date Type Department Care Team (Latest Contact Info) Description 09/07/2023 10:00 AM CAM MILLING MACHINE OPERATOR Office Visit [facility] Oncology and Hematology - Norm [address] [place] [address] Emily Pacheco FNP [address] [facility] [address] [place] [address] Erythrocytosis (Primary Dx) Social History Tobacco Use Types Packs/Day Years [...] on file documented as of this encounter Last Filed Vital Signs Vital Sign Reading Time Taken Comments Blood Pressure 107/62 09/07/2023 9:58 AM CAM MILLING MACHINE OPERATOR Pulse 63 09/07/2023 9:58 AM CAM MILLING MACHINE OPERATOR Temperature - - Respiratory Rate 10 09/07/2023 9:58 AM CAM MILLING MACHINE OPERATOR Oxygen Saturation 96% 09/07/2023 9:58 AM CAM MILLING MACHINE OPERATOR Inhaled Oxygen Concentration - - Weight 69.9 kg (154 lb) 09/07/2023 9:58 AM CAM MILLING MACHINE OPERATOR Height - - Body Mass Index 28.17 08/23/2023 1:09 PM CDT documented in this encounter Progress Notes * Emily Pacheco, HYDROGRAPHIC ENGINEER - 09/07/2023 10:18 AM CST Hematology / Oncology Progress Note Patient Identification: Name: Geetha Hernandez Age: 67 y.o. Sex: female : 1955 Diagnosis: Erythrocytosis Current Treatment: Baby aspirin 81mg August 2023 Treatment History: Subjective: Patient returns today for a follow up visit. She states she is getting ankle surgery to remove a screw this Tuesday. She again denies any history of COPD, smoking, weight gain/loss, stroke, thromboembolic events, or hormone use. Denies shortness of breath, palpitations, bleeding or bruising. No other complaints. Tobacco Counseling: She is not a tobacco/nicotine user. Review of Systems Constitutional: Negative for chills, fatigue, fever and unexpected weight change. HENT: Negative for mouth sores. Respiratory: Negative for cough and shortness of breath. Cardiovascular: Negative for chest pain, palpitations and leg swelling. Gastrointestinal: Negative for abdominal pain, blood in stool, constipation, diarrhea, nausea and vomiting. Genitourinary: Negative for hematuria. Musculoskeletal: Negative for arthralgias. Skin: Negative for rash and wound. Neurological: Negative for dizziness, weakness, numbness and headaches. Hematological: Negative for adenopathy. Does not bruise/bleed easily. Objective: Vital signs in last 24 hours: As per nursing note Physical Exam Vitals reviewed. Constitutional: General: She is awake. Appearance: Normal appearance. She is normal weight. HENT: Head: Normocephalic and atraumatic. Mouth/Throat: Mouth: Mucous membranes are moist. Pharynx: Oropharynx is clear. Eyes: Pupils: Pupils are equal, round, and reactive to light. Cardiovascular: Rate and Rhythm: Normal rate and regular rhythm. Pulses: Normal pulses. Heart sounds: Normal heart sounds. Pulmonary: Effort: Pulmonary effort is normal. Breath sounds: Normal breath sounds. Abdominal: General: Abdomen is flat. Bowel sounds are normal. Palpations: Abdomen is soft. There is no hepatomegaly or splenomegaly. Musculoskeletal: General: Normal range of motion. Cervical back: Normal range of motion. Skin: General: Skin is warm and dry. Neurological: General: No focal deficit present. Mental Status: She is alert and oriented to person, place, and time. Labs: 05/13/23: WBC 5.4, Hbg 16.6, Hct 49.9, Plts 234,000 08/23/23: WBC 7.0, Hbg 16.6, Hct 50.7, EPO 9.8, BLANCA 2 negative Assessment: Plan: Erythrocytosis This patient's erythrocytosis is from unknown etiology due to no essential risk factors, negative BLANCA 2 mutation, and normal EPO level. At this time, we will continue to monitor hematocrit in 3 months time since patient is asymptomatic. Based on the repeat labs, will decide about phlebotomy to keephematocrit less than 50. I have recommended regular exercise, diet, and weight loss. I have discussed signs and symptoms of blood clots. Continue aspirin 81mg daily Diabetes Mellitus: Follows with PCP. Stable on Glipizide, Metformin. Hypothyroidism: Patient is on Levothyroxine. HLD: Patient is on Atorvastatin. Ankle Surgery: Patient is pending ankle surgery this Tuesday. Patient has already stopped baby aspirin prior to surgery. Discussed at risk for blood clot due to immobility post surgery and discussed signs and symptoms of blood clots. Follow up in 3 months NAVID Rodriguez, 09/07/2023, 10:18 AM Hematology Oncology Nurse Practitioner [facility] This patient's plan of care has been reviewed and approved by Dr. Champ Montero. MILLING MACHINE OPERATOR documented in this encounter Plan of Treatment Upcoming Encounters Date Type Department Care Team (Late st Contact Info) Description 02/11/2025 2:15 PM CDT Office Visit [facility] Oncology and Hematology [facility] [address] [facility] [address] [place] [address] Champ Montero MD [address] [facility] [address] [place] [address] documented as of this encounter Procedures Procedure Name Priority Date/Time Associated Diagnosis Comments CBC WITHOUT DIFFERENTIAL Routine 11/28/2023 9:34 AM CAM MILLING MACHINE OPERATOR Erythrocytosis BASIC METABOLIC PANEL Routine 11/28/2023 9:34 AM CAM MILLING MACHINE OPERATOR Erythrocytosis documented in this encounter Results * (ABNORMAL) CBC WITHOUT DIFFERENTIAL (11/28/2023 9:34 AM CAM MILLING MACHINE OPERATOR) WBC 5.2 3.8 - 10.8 Thousand/u L [facility] RBC 5.39(H) 3.80 - 5.10 Million/uL [facility] HEMOGLOBIN 16.2(H) 11.7 - 15.5 g/dL [facility] HEMATOCRIT 49.5(H) 35.0 - 45.0 % [facility] MCV 91.8 80.0 - 100.0 fL [facility] MCH 30.1 27.0 - 33.0 pg [facility] MCHC 32.7 32.0 - 36.0 g/dL [facility] RDW 13.1 11.0 - 15.0 % [facility] PLATELETS 219 140 - 400 Thousand/u L [facility] MPV 12.5 7.5 - 12.5 fL [facility] Comment: FASTING:YES FASTING: YES Test Performed at: [facility] [address] [place], [place] ??[phone] Marnie Sanabria MD Blood 11/28/2023 9:34 AM CAM MILLING MACHINE OPERATOR 11/28/2023 9:35 AM CAM MILLING MACHINE OPERATOR Emily COATESP HEMATOLOGY ORDERABLE S [facility] [phone] [facility] [address] [place] [address] * (ABNORMAL) BASIC METABOLIC PANEL (11/28/2023 9:34 AM CAM MILLING MACHINE OPERATOR) GLUCOSE 160(H) 65 - 99 mg/dL [facility] Comment: ? Fasting reference interval For someone without known diabetes, a glucose value >125 mg/dL indicates that they may have diabetes and this should be confirmed with a follow-up test. BUN 15 7 - 25 mg/dL [facility] CREATININE 0.68 0.50 - 1.05 mg/dL [facility] GFR 95 > OR = 60 mL/min/1.7 3m2 [facility] BUN/CREAT RATIO SEE NOTE: 6 - 22 (calc) [facility] Comment: ?? Not Reported: BUN and Creatinine are within ?? reference range. ? SODIUM 140 135 - 146 mmol/L [facility] POTASSIUM 4.6 3.5 - 5.3 mmol/L [facility] CHLORIDE 105 98 - 110 mmol/L [facility] CO2 26 20 - 32 mmol/L [facility] CALCIUM 9.9 8.6 - 10.4 mg/dL [facility] Comment: FASTING:YES FASTING: YES Test Performed at: [facility] [id number] [place] [address] ??[phone] Marnie Sanabria MD Blood 11/28/2023 9:34 AM CAM MILLING MACHINE OPERATOR 11/28/2023 9:35 AM CAM MILLING MACHINE OPERATOR Emily CENTENO CHEMISTRY ORDERABLES [facility] [phone] [facility] [address] [place] [address] documented in this encounter Visit Diagnoses Diagnosis Erythrocytosis- Primary Reserved for inherently not codable concepts WITHOUT codable children documented in this encounter Care Teams Sketcher Relationship Specialty Start Date End Date Ap Ayers MD [address] [place] [address] PCP - General Family Practice 05/27/23 documented as of this encounter
--- OUTSIDE RECORDS SUMMARY | 2024-10-08 21:54 | XMS_ITS | Encounter Summary ---
Author Organization [facility] Address [address] [place] [address] Care Team Providers Care Dental Assistant Teacher Name Role Phone Ap Ayers MD Primary Care Provider [phone] Encounter Details Date Type Department Care Team (Late st Contact Info) Description 01/24/2024 External Device Data STL ABSTRACTION Provider, Abstract [...] Description 02/11/2025 2:15 PM CDT Office Visit [facility] Oncology and Hematology - [place] [address] [place] [address] [address] [place] [address] Champ Montero MD [address] [facility] [address] [place] [address] documented as of this encounter Visit Diagnoses Not on filedocumented in this encounter Care Teams Dental Assistant Teacher Relationship Specialty Start Date End Date Ap Ayers MD [address] [place] [address] PCP - General Family Practice 05/27/23 documented as of this encounter
--- OUTSIDE RECORDS SUMMARY | 2024-10-08 21:54 | XMS_ITS | Encounter Summary ---
Author Organization [facility] Address [address] [place] [address] Care Team Providers Care Hoof Trimmer Name Role Phone Ap Ayers MD Primary Care Provider [phone] Encounter Details Date Type Department Care Team (Late st Contact Info) Description 02/28/2024 External Device Data STL ABSTRACTION Provider, Abstract [...] Description 02/11/2025 2:15 PM CDT Office Visit [facility] Oncology and Hematology - [place] [address] [place] [address] [address] [place] [address] Champ Montero MD [address] [facility] [address] [place] [address] documented as of this encounter Visit Diagnoses Not on filedocumented in this encounter Care Teams Hoof Trimmer Relationship Specialty Start Date End Date Ap Ayers MD [address] [place] [address] PCP - General Family Practice 05/27/23 documented as of this encounter
--- OUTSIDE RECORDS SUMMARY | 2024-10-08 21:54 | XMS_ITS | Encounter Summary ---
Author Organization [facility] Address [address] [facility] [place] [address] Care Team Providers Care Trimming Press Operator Name Role Phone Evette Snowden MD Primary Care Provider Reason for Visit * Reason Comments Pain Ear left Encounter Details Date Type Department Care Team (Late st Contact Info) Description 03/25/2022 10:40 AM CDT Office Visit [facility] [address] [place], [place] [id number] Evette Snowden MD [address] [address] Right ear pain (Primary Dx); Type 2 diabetes mellitus without complication, without long-term current use of insulin (HCC) Social History Tobacco Use Types Packs/Day Years Used Date Smoking Tobacco: Never Smokeless Tobacco: Never Tobacco Cessation:Counseling Given: No Alcohol Use Standard Drinks/Week Comments Yes 0 (1 standard drink = 0.6 oz pur e alcohol) Sex and Gender Information Value Date Recorded Sex Assigned at Not on file Gender Identity Not on file Sexual Orientation Not on file documented as of this encounter Last Filed Vital Signs Vital Sign Reading Time Taken Comments Blood Pressure 122/68 03/25/2022 10:37 AM CDT Pulse 71 03/25/2022 10:37 AM CDT Temperature 36.6 ??C (97.9 ??F) 03/25/2022 10:37 AM C DT Respiratory Rate - - Oxygen Saturation 98% 03/25/2022 10:37 AM CDT Inhaled Oxygen Concentration - - Weight 75.8 kg (167 lb) 03/25/2022 10:37 AM CDT Height 162.6 cm (5' 4 ) 03/25/2022 10:37 AM CDT Body Mass Index 28.67 03/25/2022 10:37 AM CDT documented in this encounter Progress Notes * Evette Snowden MD - 03/25/2022 11:00 AM CDT Pt has been treated by another doc for L ear congestion since end of December. It all started when she popped her ear in the shower. Not painful, but hearing acutely declined. Since that time, has hadpoor hearing. Has been on two 5 day courses of prednisone. Has been on cefuroxime and doxy. Pt thinks the hearing decline is better than it was, but still declined. Pt had COVID in March 17. ROS: GEN: no fever,no chills, no unexplained weight loss, no excessive thirst PSY: no depression, no anxiety, no insomnia, no lack of motivation SKIN: No rash, no new skin lesions HENT: No new severe headaches, no hearing loss, no congestion, no sore throat, no hoarseness, + R ear pain. EYES: no visual changes, no eye pain, no red eyes, no eye discharge CV: no chest pain, no palpitations,no pain in legs while walking, no edema in ext. RESP: No cough, no SOB, no wheeze ABD: No heartburn, no nausea, no vomiting, no diarrhea, no constipation, no blood in stool : no dysuria, no urinary frequency, no blood in urine, no discharge from penis or vagina, no testicular mass MUSC: No arthritis, No joint swelling, no unusual aches in joints or muscles NEURO: no numbness, no tingling, no seizures BP 122/68 (BP SITE: LEFT ARM, BP POSITION: SITTING, BP CUFF SIZE: 11) Pulse 71 Temp 97.9 ??F (36.6 ??C) Ht 5' 4 (1.626 m) Wt 167 lb (75.8 kg) SpO2 98% BMI 28.67 kg/m2 constitutional alert, cooperative, no distress, appears stated age and overweight HEAD: normocephalic, atraumatic, no maxillary sinus tenderness to palpation EARS:TM's normal bilat, no bulging or redness and EAC's normal without discharge EYES: PERRL, EOMI, Gaze conjugate and sclerae clear, nonicteric, noninjected NECK: Normal, supple, No thyromegaly, No adenopathy and Full ROM Oropharynx:mucosa moist, no lesions noted. no tonsilar enlargement LYMPH: No adenopathy. LUNGS:respirations normal, CTA B, Good air movment and No wheezes, no rales, no rhonchi HEART:Regular rate and rythm. No murmurs. Geetha was seen today for pain ear. Diagnoses and all orders for this visit: Right ear pressure and decreased hearing, no infection or trauma seen. Consider eustacean tube dysfunction, SSNHL. Will send to audio for tympanogram and hearing test. Pt agreeable to this plan. Type 2 diabetes mellitus without complication, without long-term current use of insulin, on glucotrol and metformin. ozempic not covered by her insurance. Briefly discussed use of insulin as a highly effective agent. Pt will consider this and discuss with her regular doctor. F/u prn. documented in this encounter Miscellaneous Notes * Addendum Note - Dalila Street - 03/26/2022 8:30 AM CDTAddended by: DALILA STREET on: 03/26/2022 08:30 AM Modules accepted: Orders documented in this encounter Plan of Treatment Not on file documented as of this encounter Procedures Procedure Name Priority Date/Time Associated Diagnosis Comments HEMOGLOBIN A1C - POINT OF CARE (AMB) [facility] Routine 03/26/2022 Type 2 diabetes mellitus without complication, without long-term current use of insulin (HCC) documented in this encounter Results * HEMOGLOBIN A1C - POINT OF CARE (AMB) [facility] (03/26/2022) Hemoglobin A1c POCT 9.8 % BLOOD SPECIMEN / Unknown 03/26/2022 Evette Snowden MD LAB - POINT OF CARE ORDERABLES documented in this encounter Visit Diagnoses Diagnosis Right ear pain- Primary Otalgia, unspecified Type 2 diabetes mellitus without complication, without long-term current use of insulin (HCC) documented in this encounter Care Teams Trimming Press Operator Relationship Specialty Start Date End Date Evette Snowden MD [address] [phone] PCP - General 03/09/22 documented as of this encounter
--- OUTSIDE RECORDS SUMMARY | 2024-10-08 21:54 | XMS_ITS | Encounter Summary ---
Author Organization [facility] Address [address] [place] [address] Care Team Providers Care Accounts Payable Payroll Coordinator Name Role Phone Ap Ayers MD Primary Care Provider [phone] Reason for Visit * Reason Comments Follow Up Encounter Details Date Type Department Care Team (Latest Contact Info) Description 04/11/2024 10:30 AM CDT Office Visit [facility] Oncology and Hematology - Norm [address] [facility] [address] [place] [address] Emily Pacheco FNP [address] [facility] [address] [place] [address] Erythrocytosis (Primary Dx) Social History [...] Sign Reading Time Taken Comments Blood Pressure 109/63 04/11/2024 10:15 AM CDT Pulse 65 04/11/2024 10:15 AM CDT Temperature 35.7 ??C (96.3 ??F) 04/11/2024 1 0:15 AM CDT Respiratory Rate 14 04/11/2024 10:1 5 AM CDT Oxygen Saturation 96% 04/11/2024 10: 15 AM CDT Inhaled Oxygen Concentration - - Weight 68.9 kg (151 lb 12.8 oz) 024 10:15 AM CDT Height - - Body Mass Index 27.76 08/23/2023 1:09 PM CDT documented in this encounter Progress Notes * Parthradha EmilyJACOBO - 04/11/2024 10:33 AM CDT Hematology / Oncology Progress Note Patient Identification: Name: Geetha Hernandez Age: 68 y.o. Sex: female : 1955 Diagnosis: Secondary Erythrocytosis Current Treatment: Baby aspirin 81mg August 2023 Treatment History: Subjective: Patient returns today for a follow up visit. She is taking aspirin without issue. She is not working at [employer] anymore. They changed her DM medication. She is swimming 5x a week and walking every evening. Denies shortness of breath, palpitations, bleeding or bruising. No other complaints. Tobacco Counseling: She is not a tobacco/nicotine user. Review of Systems All systems reviewed & are unremarkable except as noted in HPI and above Objective: Vital signs in last 24 hours: [...] Hct 50.7, EPO 9.8, BLANCA 2 negative 11/28/23: WBC 5.2, Hgb 16.2, Hct 49.5, Plt 219,000, 04/04/24 WBC 6, Hgb 16, Hct 48.7, Plt 228,000, Assessment: Plan: Erythrocytosis I have reviewed labs with patient. There is a slight decrease in Hgb / Hct since last visit. She has changed -flozin medications and this may also be the cause of her erythrocytosis as well. I have recommended regular exercise, diet, and weight loss. I have discussed signs and symptoms of blood clots. No need for phlebotomy at this time. Continue aspirin 81mg daily Diabetes Mellitus Patient is on Jardiance,Glipizide, Metformin. Hypothyroidism Patient is on Levothyroxine. HLD Patient is on Atorvastatin. Follow up in 4 months JACOBO Rodriguez-Wagner, 04/11/2024, 10:58 AM Hematology Oncology Nurse Practitioner [facility] Collaborating Physician: Dr Champ Montero On the day of this visit I spent 27 minutes providing care to this patient including Preparing to see the patient, Obtaining and/or reviewing separately obtained history, Counseling and educating thepatient/family/caregiver, Ordering medications, tests or procedures, and Documenting clinical information in the medical record documented in this encounter Plan of Treatment Upcoming Encounters Date Type Department Care Team (Late st Contact Info) Description 02/11/2025 2:15 PM CDT Office Visit [facility] Oncology and Hematology [facility] [address] [place] [address] [place] [phone] Champ Montero MD [address] [facility] [address] [place] [address] Scheduled Orders Name Type Priority Associated Diagnoses Orde r Schedule BASIC METABOLIC PANEL Lab Routine Erythrocytosis Expected: 04/11/2024, Expires: 04/11/2025 CBC WITH DIFFERENTIAL Lab Routine Erythrocytosis Expected: 04/11/2024, Expires: 04/11/2025 documented as of this encounter Visit Diagnoses Diagnosis Erythrocytosis- Primary Reserved for inherently not codable concepts WITHOUT codable children documented in this encounter Care Teams Accounts Payable Payroll Coordinator Relationship Specialty Start Date End Date Ap Ayers MD [address] [place] [address] PCP - General Family Practice 05/27/23 documented as of this encounter
--- OUTSIDE RECORDS SUMMARY | 2024-10-08 21:54 | XMS_ITS | Encounter Summary ---
Author Organization [facility] Address [address] [place] [address] Care Team Providers Care Nurses' Association Counselor Name Role Phone Ap Ayers MD Primary Care Provider Encounter Details Date Type Department Care Team (Late Contact Info) Description 08/31/2023 Orders Only [facility] Oncology and Hematology Norm [address] [place] [address] Champ Montero MD [facility] [address] [place] [address] Social History Tobacco Use Types Packs/Day Years [...] Description 02/11/2025 2:15 PM CDT Office Visit [facility] Oncology and Hematology - Norm [address] [place] [address] Champ Montero MD [address] [facility] [address] [place] [address] documented as of this encounter Procedures Procedure Name Priority Date/Time Associated Diagnosis Comments JAK2 MUTATION Routine 08/23/2023 9:54 AM CDT documented in this encounter Results * JAK2 MUTATION (08/23/2023 9:54 AM CDT) Blood BLOOD SPECIMEN / Unknown Champ Montero MD CHEMISTRY ORDERABLES documented in this encounter Visit Diagnoses Not on filedocumented in this encounter Care Teams Nurses' Association Counselor Relationship Specialty Start Date End Date Ap Ayers MD [address] [place] [address] PCP - General Family Practice 05/27/23 documented as of this encounter
--- OUTSIDE RECORDS SUMMARY | 2024-10-08 21:54 | XMS_ITS | Encounter Summary ---
Author Organization [facility] Address [address] [place] [address] Care Team Providers Care Reliability Engineer Name Role Phone Ap Ayers MD Primary Care Provider [phone] Encounter Details Date Type Department Care Team (Late st Contact Info) Description 06/14/2024 External Device Data STL ABSTRACTION Provider, Abstract [...] Description 02/11/2025 2:15 PM CDT Office Visit [facility] Oncology and Hematology - [place] [address] [place] [address] [address] [place] [address] Champ Montero MD [address] [facility] [address] [place] [address] documented as of this encounter Visit Diagnoses Not on filedocumented in this encounter Care Teams Reliability Engineer Relationship Specialty Start Date End Date Ap Ayers MD [address] [place] [address] PCP - General Family Practice 05/27/23 documented as of this encounter
--- OUTSIDE RECORDS SUMMARY | 2024-10-08 21:54 | XMS_ITS | Encounter Summary ---
Author Organization [facility] Address [address] [place] [address] Care Team Providers Care Brim Stiffener Name Role Phone Ap Ayers MD Primary Care Provider [phone] Encounter Details Date Type Department Care Team (Late st Contact Info) Description 05/01/2024 External Device Data STL ABSTRACTION Provider, Abstract [...] Description 02/11/2025 2:15 PM CDT Office Visit [facility] Oncology and Hematology - [place] [address] [place] [address] [address] [place] [address] Champ Montero MD [address] [facility] [address] [place] [address] documented as of this encounter Visit Diagnoses Not on filedocumented in this encounter Care Teams Brim Stiffener Relationship Specialty Start Date End Date Ap Ayers MD [address] [place] [address] PCP - General Family Practice 05/27/23 documented as of this encounter
--- OUTSIDE RECORDS SUMMARY | 2024-10-08 21:54 | XMS_ITS | Encounter Summary ---
Author Organization [facility] Address [address] [place] [address] Care Team Providers Care Supervisor Porcelain Department Name Role Phone Ap Ayers MD Primary Care Provider [phone] Encounter Details Date Type Department Care Team [...] Description 02/11/2025 2:15 PM CDT Office Visit [facility] Oncology and Hematology - [place] [address] [place] [address] [address] [place] [address] Champ Montero MD [address] [facility] [address] [place] [address] documented as of this encounter Visit Diagnoses Not on filedocumented in this encounter Care Teams Supervisor Porcelain Department Relationship Specialty Start Date End Date Ap Ayers MD [address] [place] [address] PCP - General Family Practice 05/27/23 documented as of this encounter
--- OUTSIDE RECORDS SUMMARY | 2024-10-08 21:54 | XMS_ITS | Encounter Summary ---
Author Organization [facility] Address [address] [place] [address] Care Team Providers Care Envelope Sealer Name Role Phone Ap Ayers MD Primary Care Provider [phone] Encounter Details Date Type Department Care Team (Late st Contact Info) Description 03/27/2024 External Device Data STL ABSTRACTION Provider, Abstract [...] ([facility]) Oncology and Hematology - Norm [address] [place] [address] Dr [address] [place] [address] Champ Montero MD [address] [facility] [address] [place] [address] documented as of this encounter Visit Diagnoses Not on filedocumented in this encounter Care Teams Envelope Sealer Relationship Specialty Start Date End Date Ap Ayers MD [address] [place] [address] PCP - General Family Practice 05/27/23 documented as of this encounter
--- OUTSIDE RECORDS SUMMARY | 2024-10-08 21:54 | XMS_ITS | Encounter Summary ---
Author Organization [facility] Address [address] Zaidin: Epic Prelude ADT [place] [address] Care Team Providers Care Horticultural Farm Manager Name Role Phone Ap Ayers MD Primary Care Provider [phone] Encounter Details Date Type Department Care Team (Late st Contact Info) Description 08/06/2024 Orders Only Initial Department [address] ZAIDIN: [place] [address] Provider, Historical Social History Tobacco Use Types [...] Description 02/11/2025 2:15 PM CDT Office Visit [facility] Oncology and Hematology - Norm [address] [facility] [address] [place] [address] Champ Montero MD [address] [facility] [address] [place] [address] documented as of this encounter Procedures Procedure Name Priority Date/Time Associated Diagnosis Comments CBC WITH DIFFERENTIAL Routine 08/06/2024 7:32 AM CDT BASIC METABOLIC PANEL Routine 08/06/2024 7:32 AM CDT documented in this encounter Results * (ABNORMAL) BASIC METABOLIC PANEL (08/06/2024 7:32 [...] [facility] BUN/CREAT RATIO SEE NOTE: 6 (calc) [facility] Comment: ?? Not [...] Comment: FASTING:YES FASTING: YES Test Performed at: [facility] [address] [place], [place] ??[phone] Marnie Sanabria MD 08/06/2024 7:32 AM CDT 08/06/2024 7:35 AM CDT Emily CENTENO CHEMISTRY ORDERABLES [facility] [phone] [facility] [address] [place] [address] * (ABNORMAL) CBC WITH DIFFERENTIAL (08/06/2024 7:32 AM CDT) Pathologist [facility] WBC 6.0 3.8 - 10.8 Thousand/u L [...] Comment: FASTING:YES FASTING: YES Test Performed at: [facility] [address] [place], [place] ??[phone] Marnie Sanabria MD 08/06/2024 7:32 AM CDT 08/06/2024 7:35 AM CDT Emily Tara [facility] HEMATOLOGY ORDERABLE [facility] [phone] [facility] [address] [place] [address] documented in this encounter Visit Diagnoses Not on filedocumented in this encounter Care Teams Horticultural Farm Manager Relationship Specialty Start Date End Date Ap Ayers MD [address] [place] [address] PCP - General Family Practice 05/27/23 documented as of this encounter
--- OUTSIDE RECORDS SUMMARY | 2024-10-08 21:54 | XMS_ITS | Encounter Summary ---
Author Organization [facility] Address [address] [place] [address] Care Team Providers Care Monorail Helper Name Role Phone Ap Ayers MD Primary Care Provider [phone] Encounter Details Date Type Department Care Team (Late st Contact Info) Description 05/08/2024 External Device Data STL ABSTRACTION Provider, Abstract [...] Description 02/11/2025 2:15 PM CDT Office Visit [facility] Oncology and Hematology - Norm [address] [place] [address] Dr [address] [place] [address] Champ Montero MD [address] [facility] [address] [place] [address] documented as of this encounter Visit Diagnoses Not on filedocumented in this encounter Care Teams Monorail Helper Relationship Specialty Start Date End Date Ap Ayers MD [address] [place] [address] PCP - General Family Practice 05/27/23 documented as of this encounter
--- OUTSIDE RECORDS SUMMARY | 2024-10-08 21:54 | XMS_ITS | Encounter Summary ---
Author Organization [facility] Address [address] [place] [address] Care Team Providers Care Cyanide Pot Hardener Name Role Phone Ap Ayers MD Primary Care Provider [phone] Encounter Details Date Type Department Care Team (Late st Contact Info) Description 12/23/2023 External Device Data STL ABSTRACTION Provider, Abstract [...] Description 02/11/2025 2:15 PM CDT Office Visit [facility] Oncology and Hematology - [place] [address] [place] [address] Dr [address] [place] [address] Champ Montero MD [address] [facility] [address] [place] [address] documented as of this encounter Visit Diagnoses Not on filedocumented in this encounter Care Teams Cyanide Pot Hardener Relationship Specialty Start Date End Date Ap Ayers MD [address] [place] [address] PCP - General Family Practice 05/27/23 documented as of this encounter
--- OUTSIDE RECORDS SUMMARY | 2024-10-08 21:54 | XMS_ITS | Encounter Summary ---
Author Organization [facility] Address [address] [place] [address] Care Team Providers Care Ring Attacher Name Role Phone Ap Ayers MD Primary Care Provider [phone] Encounter Details Date Type Department Care Team [...] Description 02/11/2025 2:15 PM CDT Office Visit [facility] Oncology and Hematology - [place] [address] [place] [address] Dr [address] [place] [address] Champ Montero MD [address] [facility] [address] [place] [address] documented as of this encounter Visit Diagnoses Not on filedocumented in this encounter Care Teams Ring Attacher Relationship Specialty Start Date End Date Ap Ayers MD [address] [place] [address] PCP - General Family Practice 05/27/23 documented as of this encounter
--- OUTSIDE RECORDS SUMMARY | 2024-10-08 21:54 | XMS_ITS | Encounter Summary ---
Author Organization [facility] Address [address] [place] [address] Care Team Providers Care Ladle Filler Name Role Phone Ap Ayers MD Primary Care Provider [phone] Reason for Visit * Reason Comments Follow Up Encounter Details Date Type Department Care Team ([facility] st Contact Info) Description 08/13/2024 1:00 PM CDT Office Visit [facility] Oncology and Hematology - Norm [address] [facility] [address] [place] [address] Champ Montero MD [address] [facility] [address] [place] [address] Erythrocytosis (Primary Dx) Social History Tobacco Use [...] (155 lb) 08/13/2024 1:06 PM CDT Height - - Body Mass Index 28.35 08/23/2023 1:09 PM CDT documented in this encounter Progress Notes * Champ Montero MD - 08/13/2024 1:48 PM CDT HEMATOLOGY / ONCOLOGY PROGRESS NOTE Patient Identification: Name: Geetha Hernandez Age: 68 y.o. 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 She denies any chest pain and shortness of breath. No bleeding and bruising. Weight and appetite stable. No other new complaints. Review of system Constitutional: Patient did not mention fevers, sweats, fatigue, malaise, weight loss HEENT: Patient did not mention sinus congestion, hearing or vision problems Respiratory: Patient did not mention cough, dyspnea, wheeze Cardiovascular: Patient did not mention chest pain, exertional chest pressure/discomfort, nausea, syncope, shortness of breath GI: Patient did not mention constipation, diarrhea, dsyphagia, reflux symptoms, vomiting, melena : Patient did not mention dysuria, frequency, incontinence, urgency Integumentary system: no lymphadenopathy, sweats, flushing Musculoskeletal: Patient not mention: myalgia, arthralgia Neurological: Patient did not mention blurry or disturbed vision, numbness/weakness, dizziness Skin: No lumps, bumps or rashes. Objective: Vital signs in last 24 hours: As per nursing note Exam: General appearance: alert, cooperative, no distress, appears stated age Head: normocephalic, without obvious abnormality, atraumatic Eyes: conjunctivae/corneas clear, EOM's intact Ears: normal external ear canals AU Nose: Nares normal. Septum midline. Mucosa normal. No drainage or sinus tenderness Throat: Lips, mucosa, and tongue normal. Teeth and gums normal Neck: supple, symmetrical, trachea midline. Lungs: clear to auscultation bilaterally Heart: regular rate and rhythm, S1, S2 normal, no murmur, click, rub or gallop Abdomen: soft, non-tender. Bowel sounds normal. No masses, No organomegaly Extremities: extremities normal, atraumatic, no cyanosis or edema Skin: Skin color, texture, turgor normal. No rashes or lesions Lymph nodes: No lymphadenopathy Neuro: No obvious focal deficit PATH LABS Labs from August 06 showed hemoglobin 16.4 hematocrit 48.9 @IMAGEIMP@ Assessment: Plan: There are no problems to display for this patient. 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 She denies any recent history of smoking. Denies any secondhand smoking exposure. No history of sleep apnea. Weight is stable. Labs showed slightly high hematocrit. No need for phlebotomy. Continue baby aspirin. I have recommended regular exercise and activity. Follow- up in 6 months. Type 2 diabetes. Patient is on Jardiance glipizide and metformin. Hypothyroidism. Stable on levothyroxine. ? TOBACCO COUNSELING She is not a tobacco/nicotine user. 08/13/2024 Champ Montero MD documented in this encounter Plan of Treatment Upcoming Encounters Date Type Department Care Team (Late st Contact Info) Description 02/11/2025 2:15 PM CDT Office Visit [facility] Oncology and Hematology [facility] [address] [place] [address] Champ Montero MD [address] [facility] [address] [place] [address] Scheduled Orders Name Type Priority Associated Diagnoses Orde r Schedule CBC WITH DIFFERENTIAL Lab Stat Erythrocytosis Expected: 02/11/2025, Expires: 08/13/2025 BASIC METABOLIC PANEL Lab Stat Erythrocytosis Expected: 02/11/2025, Expires: 08/13/2025 documented as of this encounter Visit Diagnoses Diagnosis Erythrocytosis- Primary Reserved for inherently not codable concepts WITHOUT codable children documented in this encounter Care Teams Ladle Filler Relationship Specialty Start Date End Date Ap Ayers MD [address] [place] [address] PCP - General Family Practice 05/27/23 documented as of this encounter
--- OUTSIDE RECORDS SUMMARY | 2024-10-08 21:54 | XMS_ITS | Encounter Summary ---
Author Organization [facility] Address [address] [place] [address] Care Team Providers Care Supervisor Film Processing Name Role Phone Ap Ayers MD Primary Care Provider [phone] Reason for Visit * Reason Comments Follow Up Encounter Details Date Type Department Care Team (Latest Contact Info) Description 12/12/2023 10:00 AM DRUG WORKER Office Visit [facility] Oncology and Hematology - Norm [address] [facility] [address] [place] [address] Emily Pacheco FNP [address] [facility] [address] [place] [address] Erythrocytosis (Primary Dx) Social History [...] Sign Reading Time Taken Comments Blood Pressure 127/69 12/12/2023 10:00 AM DRUG WORKER Pulse 67 12/12/2023 10:00 AM DRUG WORKER Temperature 36.6 ??C (97.8 ??F) 12/12/2023 10:[address] Respiratory Rate 15 12/12/2023 10:00 AM DRUG WORKER Oxygen Saturation 97% 12/12/2023 10:00 AM DRUG WORKER Inhaled Oxygen Concentration - - Weight 69.1 kg (152 lb 4.8 oz) 12/12/2023 10:00 AM DRUG WORKER Height - - Body Mass Index 27.86 08/23/2023 1:09 PM CDT documented in this encounter Progress Notes * ParthRui garciaEmily, FNP - 12/12/2023 11:24 AM CST Hematology / Oncology Progress Note Patient Identification: Name: Geetha Hernandez Age: 68 y.o. Sex: female : 1955 Diagnosis: Erythrocytosis Current Treatment: Baby aspirin 81mg August 2023 Treatment History: Subjective: Patient returns today for a follow up visit. She had ankle surgery in Sep and is recovering well. She is still taking baby aspirin without issue. Denies any signs of bleeding or bruising. She has increased her water intake. She is walking daily and goes to the [facility] for water aerobics. She has lost 2lbs since our last visit. Denies shortness of breath, palpitations, bleeding or [...] 5.2, Hgb 16.2, Hct 49.5, Plt 219,000, Assessment: Plan: Erythrocytosis This patient's erythrocytosis is from unknown etiology due to no essential risk factors, negative BLANCA 2 mutation, and normal EPO level. Labs reviewed with patient and and Hgb 16.2 and Hct 49.5. She does not need phlebotomy until Hct ~51%. At this time, we will continue to monitor hematocrit in 3 months time since patient is asymptomatic. I have recommended regular exercise, diet, and weight loss.I have discussed signs and symptoms of blood clots. Continue aspirin 81mg daily Diabetes Mellitus: Follows with PCP. Stable on Glipizide, Metformin. Hypothyroidism: Patient is on Levothyroxine. HLD: Patient is on Atorvastatin. Follow up in 3 months JACOBO Rodriguez-Wagner, 12/12/2023, 11:24 AM Hematology Oncology Nurse Practitioner [facility] This patient's plan of care has been reviewed and approved by Dr. Champ Montero. WORKER documented in this encounter Plan of Treatment Upcoming Encounters Date Type Department Care Team (Late st Contact Info) Description 02/11/2025 2:15 PM CDT Office Visit [facility] Oncology and Hematology - Norm [address] [facility] [address] [place] [address] Champ Montero MD [address] [facility] [address] [place] [address] Scheduled Orders Name Type Priority Associated Diagnoses Orde r Schedule CBC WITH DIFFERENTIAL Lab Routine Erythrocytosis Expected: 04/02/2024, Expires: 12/12/2024 BASIC METABOLIC PANEL Lab Routine Erythrocytosis Expected: 04/02/2024, Expires: 12/12/2024 documented as of this encounter Visit Diagnoses Diagnosis Erythrocytosis- Primary Reserved for inherently not codable concepts WITHOUT codable children documented in this encounter Care Teams Supervisor Film Processing Relationship Specialty Start Date End Date Ap Ayers MD [address] [place] [address] PCP - General Family Practice 05/27/23 documented as of this encounter
--- OUTSIDE RECORDS SUMMARY | 2024-10-08 21:54 | XMS_ITS | Referral Summary ---
Author Organization [facility] Address [address] [place] [address] Care Team Providers Care Operations Support Specialist Name Role Phone Evette Snowden MD Primary Care Provider Source Comments [facility],non-owned Affiliates and Associated Physician Practices is amultiple site organization consisting of ambulatory clinics and hospital sitesin [place], [place], [place] and [place]. This disclosure is being madepursuant to the Care Everywhere program and may not contain all information available regarding this patient. Last updated 18.[facility] [employer] Allergies No known active allergies Medications * Be aware that medications may not be up to date on this document. Alwaysverify current medications with the patient. Medication Sig Dispensed Refills Start Date End Date Status atorvastatin (LIPITOR) 40 MG tablet TAKE 1 TABLET BY MOUTH EVERY DAY AT BEDTIME 02/22/2022 Active doxycycline hyclate (VIBRAMYCIN) 100 MG capsule TAKE 1 CAPSULE BY MOUTH TWICE A DAY 02/22/2022 Active levothyroxine (SYNTHROID) 75 MCG tablet Take 75 mcg by mouth once daily 12/20/2021 Active metFORMIN (GLUCOPHAGE) 1000 MG tablet Take 1,000 mg by mouth 2 times daily 02/22/2022 Active glipiZIDE CR 24hr (GLUCOTROL XL) 5 MG tablet Take 5 mg by mouth once daily 02/22/2022 Active Active Problems Problem Noted Date Diagnosed Date CAP (community acquired pneumonia) 04/19/2017 Chest pain 04/19/2017 DM2 (diabetes mellitus, type 2) 04/19/2017 Hypothyroidism 04/19/2017 Leukocytosis 04/19/2017 Social History Tobacco Use Types Packs/Day Years Used Date Smoking Tobacco: Never Smokeless Tobacco: Never Tobacco Cessation:Counseling Given: No Alcohol Use Standard Drinks/Week Comments Yes 0 (1 standard drink = 0.6 oz pur e alcohol) Sex and Gender Information Value Date Recorded Sex Assigned at Not on file Gender Identity Not on file Sexual Orientation Not on file Last Filed [...] Mass Index 28.67 03/25/2022 10:37 AM CDT Plan of Treatment Not on file Procedures Procedure Name Priority Date/Time Associated Diagnosis Comments HEMOGLOBIN A1C - POINT OF CARE (AMB) [facility] Routine 03/26/2022 Type 2 diabetes mellitus without complication, without long-term current use of insulin (HCC) from Last 3 Months or Most Recently Relevant to Health Maintenance Results * HEMOGLOBIN A1C - POINT OF CARE (AMB) [facility] (03/26/2022) Hemoglobin A1c POCT 9.8 % BLOOD SPECIMEN / Unknown 03/26/2022 Evette Snowden MD LAB - POINT OF CARE ORDERABLES from Last 3 Months or Most Recently Relevant to Health Maintenance Care Teams Operations Support Specialist Relationship Specialty Start Date End Date Evette Snowden MD [address] [address] PCP - General 03/09/22
--- OUTSIDE RECORDS SUMMARY | 2024-10-08 21:54 | XMS_ITS | Encounter Summary ---
Author Organization [facility] Address [address] [place] [address] Care Team Providers Care Orthopedic Radiologic Technologist Name Role Phone Ap Ayers MD Primary Care Provider [phone] Encounter Details Date Type Department Care Team (Late st Contact Info) Description 11/19/2023 External Device Data STL ABSTRACTION Provider, Abstract [...] [facility] Oncology and Hematology - [place] [address] [place] [address] Dr [address] [place] [address] Champ Montero MD [address] [facility] [address] [place] [address] documented as of this encounter Visit Diagnoses Not on filedocumented in this encounter Care Teams Orthopedic Radiologic Technologist Relationship Specialty Start Date End Date Ap Ayers MD [address] [place] [address] PCP - General Family Practice 05/27/23 documented as of this encounter
--- OUTSIDE RECORDS SUMMARY | 2024-10-08 21:54 | XMS_ITS | Clinical Summary ---
Author Organization [facility] Address [facility] [facility] [address] [place] [address] Care Team Providers Care Sql Bi Developer Name Role Phone Evette Snowden MD Primary Care Provider Source Comments [facility],non-owned Affiliates and Associated Physician Practices is amultiple site organization consisting of ambulatory clinics and hospital sitesin [place], [place], [place] and [place]. This disclosure is being madepursuant to the Care Everywhere program and may not contain all information available regarding this patient. Last updated 18.[facility] Allergies No known active allergies Medications * [...] type 2) 04/19/2017 Hypothyroidism 04/19/2017 Leukocytosis 04/19/2017 Family History Medical History Relation Name Comments CAD (Coronary Artery Disease) Brother Diabetes; unknown type Father Heart Failure Father Relation Name Status Comments Brother Father Social History Tobacco Use Types Packs/Day Years [...] 03/25/2022 10:37 AM CDT Plan of Treatment Health Maintenance Due Date Last Done Comments BONE DENSITY TESTING 1955 COLOGUARD (AGES 45-75) - COL ON CA SCREENING 1955 COLON MONITORING 1955 COLONOSCOPY - COLON CA SCREENING 1955 CT COLONOGRAPHY - COLON CA SCREENING 1955 Colorectal Cancer Screening 1955 FIT - COLON CA SCREENING 1955 FLEX SIG - COLON CA SCREENING 1955 MAMMOGRAM 1955 MEDICARE AWV ? 12 MONTHS 1955 PNEUMOCOCCAL VACCINE 65+ (1 of 2 - PCV) 1960 HEPATITIS C SCREENING 11/26/1972 DIABETES-SERUM CREATININE 1972 DTAP/TDAP/TD VACCINES (1 - Tdap) 1973 ZOSTER VACCINE (1 of 2) 2004 DIABETES RETINOPATHY SCREENING 03/25/2022 DIABETES-FOOT EXAM WITH MONOFILAMENT 03/25/2022 DIABETES-NEPHROPATHY 03/25/2022 DIABETES-HGB A1C 09/25/2022 03/26/2022 DEPRESSION SCREENING 10/24/2023 COVID-19 VACCINE (2023-2 5 season) 2024 INFLUENZA VACCINE (#1) 2024 Respiratory Syncytial Virus (RSV) Vaccine Pt: or over 60 yrs (1 - 1-dose 75+ series) 2029 HEPATITIS B VACCINE Aged Out No longe r eligible based on patient's age to complete this topic HIB VACCINE Aged Out No longer eligi ble based on patient's age to complete this topic HPV VACCINE Aged Out No longer eligi ble based on patient's age to complete this topic MENINGOCOCCAL VACCINE Aged Out No ofe marlene eligible based on patient's age to complete this topic Procedures Procedure Name Priority Date/Time Associated Diagnosis [...] Recently Relevant to Health Maintenance Care Teams Sql Bi Developer Relationship Specialty Start Date End Date Evette Snowden MD [address] [facility] [address] [place] [phone] PCP - General 03/09/22
--- OUTSIDE RECORDS SUMMARY | 2024-10-08 21:54 | XMS_ITS | Encounter Summary ---
Author Organization [facility] Address [address] [place] [address] Care Team Providers Care Design Technology Professor Name Role Phone Ap Ayers MD Primary Care Provider [phone] Encounter Details Date Type Department Care Team (Late st Contact Info) Description 01/17/2024 External Device Data STL ABSTRACTION Provider, Abstract [...] Description 02/11/2025 2:15 PM CDT Office Visit [facility] Oncology and Hematology - [place] [address] [place] [address] [address] [place] [address] Champ Montero MD [address] [facility] [address] [place] [address] documented as of this encounter Visit Diagnoses Not on filedocumented in this encounter Care Teams Design Technology Professor Relationship Specialty Start Date End Date Ap Ayers MD [address] [place] [address] PCP - General Family Practice 05/27/23 documented as of this encounter
--- OUTSIDE RECORDS SUMMARY | 2024-10-08 21:54 | XMS_ITS | Encounter Summary ---
Author Organization [facility] Address [address] [place] [address] Care Team Providers Care Coder Name Role Phone Ap Ayers MD Primary Care Provider [phone] Encounter Details Date Type Department Care Team (Late st Contact Info) Description 07/10/2024 External Device Data STL ABSTRACTION Provider, [...] Description 02/11/2025 2:15 PM CDT Office Visit [facility] Oncology and Hematology - [place] [address] [place] [address] [address] [place] [address] Champ Montero MD [address] [facility] [address] [place] [address] documented as of this encounter Visit Diagnoses Not on filedocumented in this encounter Care Teams Coder Relationship Specialty Start Date End Date Ap Ayers MD [address] [place] [address] PCP - General Family Practice 05/27/23 documented as of this encounter
--- OUTSIDE RECORDS SUMMARY | 2024-10-08 21:54 | XMS_ITS | Encounter Summary ---
Author Organization [facility] Address [address] [place] [address] Care Team Providers Care Stem Mounter Name Role Phone Ap Ayers MD Primary Care Provider [phone] Encounter Details Date Type Department Care Team (Late st Contact Info) Description 09/08/2023 External Device Data STL ABSTRACTION Provider, Abstract [...] 02/11/2025 2:15 PM CDT Office Visit [facility] Oncology and Hematology - [place] [address] [place] [address] [address] [place] [address] Champ Montero MD [address] [facility] [address] [place] [address] documented as of this encounter Visit Diagnoses Not on filedocumented in this encounter Care Teams Stem Mounter Relationship Specialty Start Date End Date Ap Ayers MD [address] [place] [address] PCP - General Family Practice 05/27/23 documented as of this encounter
--- OUTSIDE RECORDS SUMMARY | 2024-10-08 21:54 | XMS_ITS | Encounter Summary ---
Author Organization [facility] Address [address] [place] [address] Care Team Providers Care Airplane Cleaner Name Role Phone Ap Ayers MD Primary Care Provider [phone] Encounter Details Date Type Department Care Team (Late st Contact Info) Description 11/18/2023 External Device Data STL ABSTRACTION Provider, Abstract [...] 02/11/2025 2:15 PM CDT Office Visit [facility] Oncology and Hematology - [place] [address] [place] [address] [address] [place] [address] Champ Montero MD [address] [facility] [address] [place] [address] documented as of this encounter Visit Diagnoses Not on filedocumented in this encounter Care Teams Airplane Cleaner Relationship Specialty Start Date End Date Ap Ayers MD [address] [place] [address] PCP - General Family Practice 05/27/23 documented as of this encounter
--- OUTSIDE RECORDS SUMMARY | 2024-10-08 21:54 | XMS_ITS | Encounter Summary ---
Author Organization [facility] Address [address] [place] [address] Care Team Providers Care Chain Sales Representative Name Role Phone Ap Ayers MD Primary Care Provider [phone] Encounter Details Date Type Department Care Team (Late st Contact Info) Description 10/05/2023 External Device Data STL ABSTRACTION Provider, Abstract [...] Description 02/11/2025 2:15 PM CDT [facility] Visit [facility] Oncology and Hematology - [place] [address] [place] [address] [address] [place] [address] Champ Montero MD [address] [facility] [address] [place] [address] documented as of this encounter Visit Diagnoses Not on filedocumented in this encounter Care Teams Chain Sales Representative Relationship Specialty Start Date End Date Ap Ayers MD [address] [place] [address] PCP - General Family Practice 05/27/23 documented as of this encounter
--- OUTSIDE RECORDS SUMMARY | 2024-10-08 21:54 | XMS_ITS | Patient Health Summary ---
Author Organization [facility] Address [address] [place] [address] Care Team Providers Care Stemhole Borer Name Role Phone Evette Snowden MD Primary Care Provider [facility],non-owned Affiliates and Associated Physician Practices is amultiple site organization consisting of ambulatory clinics and hospital sitesin [place], [place], [place] and [place]. This disclosure is being madepursuant to the Care Everywhere program and may not contain all information available regarding this patient. Last updated 18.[facility] Allergies No known active allergies Medications * Be aware that medications may not be up to date on this document. Alwaysverify current medications with the patient. * atorvastatin (LIPITOR) 40 MG tablet(Started 02/22/2022) TAKE 1 TABLET BY MOUTH EVERY DAY AT BEDTIME * doxycycline hyclate (VIBRAMYCIN) 100 MG capsule(Started 02/22/2022) TAKE 1 CAPSULE BY MOUTH TWICE A DAY * levothyroxine (SYNTHROID) 75 MCG tablet(Started 12/20/2021) Take 75 mcg by mouth once daily * metFORMIN (GLUCOPHAGE) 1000 MG tablet(Started 02/22/2022) Take 1,000 mg by mouth 2 times daily * glipiZIDE CR 24hr (GLUCOTROL XL) 5 MG tablet(Started 02/22/2022) Take 5 mg by mouth once daily Active Problems Problem Noted Date Diagnosed Date [...] Mass Index 28.67 03/25/2022 10:37 AM CDT Procedures * HEMOGLOBIN A1C - POINT OF CARE (AMB) [facility](Performed 03/26/2022) Performed for Type 2 diabetes mellitus without complication, without long-term current use of insulin (HCC) Results * HEMOGLOBIN A1C - POINT OF CARE (AMB) [facility] (03/26/2022) Hemoglobin A1c POCT 9.8 % BLOOD SPECIMEN / Unknown 03/26/2022 Evette Snowden MD LAB - POINT OF CARE ORDERABLES Care Teams Stemhole Borer Relationship Specialty Start Date End Date Evette Snowden MD [address] [address] PCP - General 03/09/22
--- OUTSIDE RECORDS SUMMARY | 2024-10-08 21:54 | XMS_ITS | Encounter Summary ---
Author Organization [facility] Address [address] [place] [address] Care Team Providers Care Antiquer Name Role Phone Ap Ayers MD Primary Care Provider [phone] Encounter Details Date Type Department Care Team (Late st Contact Info) Description 09/27/2023 External Device Data STL ABSTRACTION Provider, Abstract [...] 02/11/2025 2:15 PM CDT Office Visit [facility] Oncology and Hematology - [place] [address] [place] [address] [address] [place] [address] Champ Montero MD [address] [facility] [address] [place] [address] documented as of this encounter Visit Diagnoses Not on filedocumented in this encounter Care Teams Antiquer Relationship Specialty Start Date End Date Ap Ayers MD [address] [place] [address] PCP - General Family Practice 05/27/23 documented as of this encounter
--- OUTSIDE RECORDS SUMMARY | 2024-10-08 21:54 | XMS_ITS | Encounter Summary ---
Author Organization [facility] Address [address] [place] [address] Care Team Providers Care Lead Loader Name Role Phone Ap Ayers MD Primary Care Provider [phone] Encounter Details Date Type Department Care Team (Late st Contact Info) Description 05/15/2024 External Device Data STL ABSTRACTION Provider, Abstract [...] Description 02/11/2025 2:15 PM CDT Office Visit [facility] Oncology and Hematology - [place] [address] [place] [address] [address] [place] [address] Champ Montero MD [address] [facility] [address] [place] [address] documented as of this encounter Visit Diagnoses Not on filedocumented in this encounter Care Teams Lead Loader Relationship Specialty Start Date End Date Ap Ayers MD [address] [place] [address] PCP - General Family Practice 05/27/23 documented as of this encounter
--- OUTSIDE RECORDS SUMMARY | 2024-10-08 21:54 | XMS_ITS | Encounter Summary ---
Author Organization [facility] YESSY Dyer [facility] Address [address] [place] [address] Care Team Providers Care Helicopter Engineer Name Role Phone Ap Ayers MD Primary Care Provider [phone] Reason for Referral * Laboratory Services (Urgent) - Closed Specialty Diagnoses / Procedures Referred By Mark gonzalez Referred To Contact Diagnoses Erythrocytosis Procedures JAK2 MUTATION Emily Pacheco FNP [address] [address] Referral ID Status Reason Start Date Expiration Date V isits Requested Visits Authorized [id number] Closed ST[facility] CTS 08/23/2023 09/22/2024 1 1 Reason for Visit * Reason Comments Establish Care Encounter Details Date Type Department Care Team (Latest Contact Info) Description 08/23/2023 1:30 PM CDT Office Visit [facility] Oncology and Hematology - Norm [address] [place] [id number] Emily Pacheco FNP [address] [address] Erythrocytosis (Primary Dx) Social History Tobacco [...] Sign Reading Time Taken Comments Blood Pressure 120/63 08/23/2023 1:09 PM CDT Pulse 65 08/23/2023 1:09 PM CDT Temperature - - Respiratory Rate 10 08/23/2023 1:09 PM CDT Oxygen Saturation 98% 08/23/2023 1:09 PM CDT Inhaled Oxygen Concentration - - Weight 69.9 kg (154 lb) 08/23/2023 1:09 PM CDT Height 157.5 cm (5' 2 ) 08/23/2023 1:09 PM CDT Body Mass Index 28.17 08/23/2023 1:09 PM CDT documented in this encounter Progress Notes * Emily Pacheco FNP - 08/23/2023 2:16 PM CDT Hematology-Oncology Consult Note Requesting Physician Ap Ayers MD Primary Care Physician Ap Ayers MD Problem List There is no problem list on file for this patient. Previous Treatment ? Measurable Disease ? Reason for Visit Geetha Hernandez is a 67 y.o. female who was referred for consultation for high red blood cells / hematocrit. History of Present Illness Patient is a very pleasant 67 year old with a history of DM, HLD, hypothyroidism, with a high hemoglobin and hematocrit for the last 6 months. Patient denies COPD, smoking, weight gain/loss, stroke, blood clots, or hormone use. Pt endorses some drop in oxygen level on her smart watch while she is sl eeping. Pt denies bleeding, bruising, night sweats, or weight gain/loss. No other complaints at this time. Past Medical History Past Medical History: Diagnosis Date Diabetes mellitus Hyperlipidemia Surgical History Past Surgical History: Procedure Laterality Date HX ANKLE SURGERY Right Medications Current Outpatient Medications Medication Sig Dispense Refill atorvastatin (LIPITOR) 40 mg tablet TAKE 1 TABLET BY MOUTH EVERY DAY AT BEDTIME glipiZIDE (GLUCOTROL XL) 5 mg Extended Release 24 hour tablet Take 5 mg by mouth daily. levothyroxine 75 mcg tablet Take 75 mcg by mouth daily. metFORMIN (GLUCOPHAGE) 1,000 mg tablet Take 1,000 mg by mouth 2 times daily. dapagliflozin propanediol (Farxiga) 5 mg Tablet Take by mouth daily. No current facility-administered medications for this visit. Allergies No Known Allergies Immunizations: There is no immunization history on file for this patient. Family History Family History Problem Relation Name Age of Onset Heart Disease Father Social History Social History Tobacco Use Smoking status: Never Smokeless tobacco: Never Substance Use Topics Alcohol use: Not Currently TOBACCO COUNSELING She is not a tobacco/nicotine user. Review of Systems: Constitutional: Patient denies fever, fatigue, night sweats, anorexia, weight loss HEENT: Patient denies headache, change in vision, sore throat, or dysphagia Respiratory: Patient denies cough, shortness of breath, dyspnea on exertion, pleuritic chest pain, or hemoptysis Cardiac: Patient denies cardiac-like chest pain, palpitations, orthopnea Breasts: Patient denies tenderness or masses GI: Patient denies abdominal pain, nausea, vomiting, diarrhea, hematochezia, or melena : Patient denies dysuria, frequency, hesitancy, or hematuria Musculosketetal: Patient denies bone pain, arthralgia, joint swelling, or myalgia Skin: Patient denies rash, petechiae, or ecchymoses Endocrine: Patient denies polydipsia, polyuria. Denies unusual weight gain/loss Neuro: Patient denies headache, changes in vision, muscle weakness, Psych: Patient denies anxiety or no depressive like symptoms Physical Exam: Vitals: As per nursing note Constitutional: Well developed, well nourished, no acute distress, non-toxic appearance Teeth and gum. No signs of infection or swelling. Eyes: PERRL, conjunctiva normal HEENT: Atraumatic, external ears normal, nose normal, oropharynx moist, no pharyngeal exudates. no sinus tenderness Neck- normal range of motion, no tenderness, supple Respiratory: No respiratory distress, normal breath sounds, no rales, no wheezing Cardiovascular: Normal rate, normal rhythm, no murmurs, no gallops, no rubs GI: Soft, nondistended, normal bowel sounds, nontender, no splenomegaly, no hepatomegaly, no mass, no rebound, no guarding : No costovertebral angle tenderness Musculoskeletal: No edema, no tenderness, no deformities. Integumentary: Well hydrated, no rash, or bruising noted Lymphatic: No lymphadenopathy noted Neurologic: Alert & oriented x 3, CN 2-12 normal, normal motor function, normal sensory function, no focal deficits noted Psychiatric: Speech and behavior appropriate ? Labs Labs from May 13, 2023: RBC 5.68, Hbg 16.6, Hct 49.9 Assessment / Plan: Erythrocytosis I have reviewed the differential diagnosis of erythrocytosis with the patient. At this time I will order the work-up that will include CBC with differential, CMP, erythropoietin level, and JAK2 mutation testing in this particular case due to no essential causes. Based on the repeat labs, will decide about phlebotomy to keep hematocrit less than 50. I have recommended regular exercise Start aspirin 81mg daily Labs today: CBC, CMP, EPO, JAK2 Diabetes Mellitus: Follows with PCP. Stable on Glipizide, Metformin. Hypothyroidism: Levothyroxine. HLD: Atorvastatin. JACOBO Rodriguez-C, 08/23/2023 2:16 PM Hematology Oncology Nurse Practitioner [facility] ? Total time spent 60 minutes, two third of the total time spent counseling patient [id number]. This plan has been reviewed and approved by Dr. Champ Montero. Thank you for allowing us to be apart of this patient's care. CC: Ap Ayers MD documented in this encounter Plan of Treatment Upcoming Encounters Date Type Department Care Team (Late st Contact Info) Description 02/11/2025 2:15 PM CDT Office Visit [facility] Oncology and Hematology [facility] [address] [place] [address] [address] Champ Montero MD [address] [facility] [address] [place] [address] Scheduled Orders Name Type Priority Associated Diagnoses Orde r Schedule CBC WITH DIFFERENTIAL Lab Routine Erythrocytosis Expected: 08/23/2023, Expires: 08/23/2024 COMPREHENSIVE METABOLIC PANEL Lab Routine Erythrocytosis Expected: 08/23/2023, Expires: 08/23/2024 ERYTHROPOIETIN LEVEL Lab Routine Erythrocytosis Expected: 08/23/2023, Expires: 08/23/2024 JAK2 MUTATION Lab Stat Erythrocytosis Expected: 08/23/2023, Expires: 08/23/2024 documented as of this encounter Visit Diagnoses Diagnosis Erythrocytosis- Primary Reserved for inherently not codable concepts WITHOUT codable children documented in this encounter Care Teams Helicopter Engineer Relationship Specialty Start Date End Date Ap Ayers MD [address] [place] [address] PCP - General Family Practice 05/27/23 documented as of this encounter
== END 2024-10-05 14:38 | disposition home or self-care (01) ==
LOC: ANHCARD 14:39
PROVIDERS: PCP Family Medicine; Visit Provider Physician Assistant Medical
DX: E11.65 Type 2 diabetes mellitus with hyperglycemia (principal); Z79.899 Other long term (current) drug therapy; Z82.79 Family history of other congenital malformations, deformations and chromosomal abnormalities; I34.0 Nonrheumatic mitral (valve) insufficiency; I36.1 Nonrheumatic tricuspid (valve) insufficiency
CPT/HCPCS: 93306